=== PATIENT | female | born 1990 | race Two or more races ===

== ENCOUNTER 2016-05-22 14:34 | Emergency (ER) | payer MEDICAID ==
[2016-05-22] MEDS ORDERED: Sodium Chloride 0.9% 1,000 ML IV ONE (15:11)
--- NOTE | 2016-05-22 15:12 | EDM.PDOC ---
ED HPI GENERAL MEDICAL PROBLEM - General Stated Complaint: ABD PAIN Time Seen by Provider: 05/22/16 14:34 Source of Information: Reports: Patient, Family History Limitations: Reports: No limitations - History of Present Illness INITIAL COMMENTS - FREE TEXT/NARRATIVE: 26 years old w f came to the ed due to pain at her lower abdomen/pelvic. No trauma. Pain started acutely this am. 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 No dysuria, no vag discharge. Pt took a BC pill in [place] which is good "for live" a few months ago. Pt denies any other acute medical issues at this time. Onset: today Onset Date: 05/22/16 Onset Time: 07:00 Duration: Hour(s): Location: Reports: pelvis Quality: Reports: Dull, Throbbing Severity: mild Improves with: Reports: None Worsens with: Reports: None Associated Symptoms: Reports: nausea/vomiting Lower Abdominal Pain Score (Numeric/FACES): 6 - Related Data Allergies Allergy/AdvReac Type Severity Reaction Status Date / Time No Known Allergies Allergy Verified 05/22/16 15:43 Home Meds: Home Meds Ondansetron [Zofran ODT] 4 mg PO Q6H PRN #20 tab.dis 05/22/16 [Rx] ED ROS GENERAL - Review of Systems Review Of Systems: See Below Constitutional: Reports: decreased appetite HEENT: Reports: No symptoms Respiratory: Reports: No Symptoms Cardiovascular: Reports: No symptoms Endocrine: Reports: no symptoms GI/Abdominal: Reports: Nausea, Vomiting : Reports: pain Musculoskeletal: Reports: no symptoms Skin: Reports: no symptoms Neurological: Reports: No Symptoms Psychiatric: Reports: No symptoms Hematologic/Lymphatic: Reports: no symptoms Immunologic: Reports: no symptoms ED EXAM, GENERAL - Physical Exam Exam: See Below Exam Limited By: No limitations General Appearance: alert, WD/WN, no apparent distress, mild distress Eye Exam: bilateral eye: normal inspection Ears: normal external exam, normal canal Ear Exam: bilateral ear: auricle normal Nose: normal inspection, normal mucosa Throat/Mouth: Normal inspection, Normal lips, Normal teeth, Normal gums, Normal oropharynx, Normal voice, No airway compromise Head: atraumatic, normocephalic Neck: normal inspection, supple, non-tender, full range of motion Respiratory/Chest: no respiratory distress, lungs clear, normal breath sounds, no accessory muscle use, chest non-tender Cardiovascular: normal peripheral pulses, regular rate, rhythm, no edema, no gallop, no JVD, no murmur, no rub Peripheral Pulses: 2+: femoral (L), femoral (R) GI/Abdominal: normal bowel sounds, soft, no organomegaly, no distention, no abnormal bruit, no mass, tender (l a r groin) (Female) Exam: Deferred, Other (refused exam) Rectal (Female) Exam: Deferred Back Exam: normal inspection, full range of motion, NT Extremities: normal inspection, normal range of motion, non-tender, normal capillary refill, no pedal edema Neurological: alert, oriented, CN II-XII intact, normal cognition, normal gait, normal reflexes, no motor/sensory deficits Psychiatric: normal affect, normal mood Skin Exam: Warm, Dry, Intact, Normal color, No rash Lymphatic: no adenopathy Course - Vital Signs Text/Narrative:: 26 years old w f came to the ed due to pain at her lower abdomen/pelvic. No trauma. Pain started acutely this am. 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 No dysuria, no vag discharge. Pt took a BC pill in [place] which is good "for live" a few months ago. Pt denies any other acute medical issues at this time. PE: pelvic pain, refused pelvic exam because her boyfriend had to go to work Labs:WBC was 14 UA was ne UDS was pos for marijuana, preg test neg Imaging: not indicated Impression: Pelvic pain with elevated WBC Tx: Toradol Reexam: Pain improved Plan: D/C with instructions. Last Recorded V/S: Last Vital Signs Temp 37.4 C 05/22/16 15:36 Pulse 100 05/22/16 15:36 Resp 18 05/22/16 17:02 BP 133/77 05/22/16 17:02 Pulse Ox 100 05/22/16 17:02 - Orders/Labs/Meds Orders: Active Orders 24 hr Category Date Time Status Pelvic Exam, Set Up [RC] ASDIRECTED Care 05/22/16 16:47 Active Sodium Chloride 0.9% [Saline Flush] Med 05/22/16 15:31 Active 10 ml FLUSH ASDIRECTED PRN Peripheral IV Insertion Adult [OM.PC] Routine Oth 05/22/16 15:31 Ordered Medication Orders Sodium Chloride (Saline Flush) 10 ml FLUSH ASDIRECTED PRN PRN Reason: Keep Vein Open Last Admin: 05/22/16 15:50 Dose: 10 ml Labs: Laboratory Tests 05/22/16 05/22/16 05/22/16 Range/Units 15:20 15:20 16:20 WBC 14.0 H (4.5-12.0) X10-3/uL RBC 4.36 (3.23-5.20) x10(6)uL Hgb 12.0 (11.5-15.5) g/dL Hct 35.9 (30.0-51.3) % MCV 82.4 (80-96) fL MCH 27.5 L (27.7-33.6) pg MCHC 33.3 (32.2-35.4) g/dL RDW 15.5 (11.5-15.5) % Plt Count 199 (125-369) X10(3)uL MPV 9.4 (7.4-10.4) fL Add Manual Diff Yes Neutrophils % (Manual) 84 H (46-82) % Band Neutrophils % 3 (0-6) % Lymphocytes % (Manual) 7 L (13-37) % Monocytes % (Manual) 6 (4-12) % Anisocytosis Moderate H Sodium 137 (135-145) mmol/L Potassium 3.6 (3.5-5.3) mmol/L Chloride 105 (100-110) mmol/L Carbon Dioxide 25 (23-29) mmol/L BUN 10 (5-20) mg/dL Creatinine 0.7 (0.6-1.3) mg/dL Est Cr Clr Drug Dosing TNP Estimated GFR (MDRD) > 60 (>60) BUN/Creatinine Ratio 14.3 (9-20) Glucose 108 (80-116) mg/dL Calcium 9.5 (8.6-10.2) mg/dL Urine Color (YELLOW) Urine Appearance (CLEAR) Urine pH (5.0-6.5) Ur Specific [place] (1.010-1.025) Urine Protein (NEGATIVE) mg/dL Urine Glucose (UA) (NEGATIVE) mg/dL Urine Ketones (NEGATIVE) mg/dL Urine Occult Blood (NEGATIVE) Urine Nitrite (NEGATIVE) Urine Bilirubin (NEGATIVE) Urine Urobilinogen (NEGATIVE) mg/dL Ur Leukocyte Esterase (NEGATIVE) Urine RBC (0) Urine WBC (0) Ur Squamous Epith Cells (NS,R,O) Urine Bacteria (NS) Urine Mucus (NS) Urine HCG, Qual (NEGATIVE) Urine Opiates Screen Negative (NEGATIVE) Ur Oxycodone Screen Negative (NEGATIVE) Ur Propoxyphene Screen Negative (NEGATIVE) Ur Barbituates Screen Negative (NEGATIVE) Ur Tricyclics Screen Negative (NEGATIVE) Ur Phencyclidine Scrn Negative (NEGATIVE) Ur Amphetamine Screen Negative (NEGATIVE) Urine MDMA Screen Negative (NEGATIVE) U Benzodiazepines Scrn Negative (NEGATIVE) U Cocaine Metab Screen Negative (NEGATIVE) U Marijuana (THC) Screen Positive H (NEGATIVE) 05/22/16 05/22/16 Range/Units 16:20 16:20 WBC (4.5-12.0) X10-3/uL RBC (3.23-5.20) x10(6)uL Hgb (11.5-15.5) g/dL Hct (30.0-51.3) % MCV (80-96) fL MCH (27.7-33.6) pg MCHC (32.2-35.4) g/dL RDW (11.5-15.5) % Plt Count (125-369) X10(3)uL MPV (7.4-10.4) fL Add Manual Diff Neutrophils % (Manual) (46-82) % Band Neutrophils % (0-6) % Lymphocytes % (Manual) (13-37) % Monocytes % (Manual) (4-12) % Anisocytosis Sodium (135-145) mmol/L Potassium (3.5-5.3) mmol/L Chloride (100-110) mmol/L Carbon Dioxide (23-29) mmol/L BUN (5-20) mg/dL Creatinine (0.6-1.3) mg/dL Est Cr Clr Drug Dosing Estimated GFR (MDRD) (>60) BUN/Creatinine Ratio (9-20) Glucose (80-116) mg/dL Calcium (8.6-10.2) mg/dL Urine Color Yellow (YELLOW) Urine Appearance Clear (CLEAR) Urine pH 8.0 H (5.0-6.5) Ur Specific [place] 1.015 (1.010-1.025) Urine Protein Negative (NEGATIVE) mg/dL Urine Glucose (UA) Normal (NEGATIVE) mg/dL Urine Ketones 15 H (NEGATIVE) mg/dL Urine Occult Blood Negative (NEGATIVE) Urine Nitrite Negative (NEGATIVE) Urine Bilirubin Negative (NEGATIVE) Urine Urobilinogen Normal (NEGATIVE) mg/dL Ur Leukocyte Esterase Negative (NEGATIVE) Urine RBC Not seen (0) Urine WBC 0-5 (0) Ur Squamous Epith Cells Moderate H (NS,R,O) Urine Bacteria Few H (NS) Urine Mucus Few H (NS) Urine HCG, Qual Negative (NEGATIVE) Urine Opiates Screen (NEGATIVE) Ur Oxycodone Screen (NEGATIVE) Ur Propoxyphene Screen (NEGATIVE) Ur Barbituates Screen (NEGATIVE) Ur Tricyclics Screen (NEGATIVE) Ur Phencyclidine Scrn (NEGATIVE) Ur Amphetamine Screen (NEGATIVE) Urine MDMA Screen (NEGATIVE) U Benzodiazepines Scrn (NEGATIVE) U Cocaine Metab Screen (NEGATIVE) U Marijuana (THC) Screen (NEGATIVE) Meds: Medications Generic Name Dose Route Start Last Admin Trade Name Freq PRN Reason Stop Dose Admin Sodium Chloride 10 ml 05/22/16 15:31 05/22/16 15:50 Saline Flush FLUSH 10 ml ASDIRECTED PRN Administration Keep Vein Open Discontinued Medications Generic Name Dose Route Start Last Admin Trade Name Freq PRN Reason Stop Dose Admin Sodium Chloride 1,000 mls @ 999 mls/hr 05/22/16 15:11 05/22/16 15:51 Normal Saline IV 05/22/16 16:11 999 mls/hr .BOLUS ONE Administration Ketorolac Tromethamine 30 mg 05/22/16 16:53 05/22/16 16:58 Toradol IVPUSH 05/22/16 16:54 30 mg ONETIME ONE Administration Departure - Departure Time of Disposition: 16:51 Disposition: Home, Self-Care 01 Condition: good Clinical Impression: Pelvic pain Elevated WBC count Qualifiers: Leukocytosis type: unspecified Qualified Code(s): D72.829 - Elevated white blood cell count, unspecified Prescriptions: Ondansetron [Zofran ODT] 4 mg PO Q6H PRN #20 tab.dis PRN Reason: Nausea Instructions: Pelvic Pain, Female, [id number], Leukocytosis Forms: ED Department Discharge Additional Instructions: Please take zofran for nausea, please follow up with obgyn a.s.a.p, take tylenol and motrin with food for pain. Please come back to the ed if your symptoms get worse acutely. [facility]- [phone] [facility] [phone] - My Orders Last 24 Hours: My Active Orders 05/22/16 15:31 Sodium Chloride 0.9% [Saline Flush] 10 ml FLUSH ASDIRECTED PRN Peripheral IV Insertion Adult [OM.PC] Routine 05/22/16 16:47 Pelvic Exam, Set Up [RC] ASDIRECTED - Assessment/Plan Last 24 Hours: My Active Orders 05/22/16 15:31 Sodium Chloride 0.9% [Saline Flush] 10 ml FLUSH ASDIRECTED PRN Peripheral IV Insertion Adult [OM.PC] Routine 05/22/16 16:47 Pelvic Exam, Set Up [RC] ASDIRECTED
[2016-05-22] MEDS ORDERED: Sodium Chloride 0.9% 10 ML Syringe FLUSH PRN (15:31)
[2016-05-22] MEDS ORDERED: Ketorolac 30 MG/ML SDV IVPUSH ONE (16:53)
[2016-05-22 17:03] VITALS: BP 133/77
== END 2016-05-22 17:15 | disposition home or self-care (01) ==
LOC: FB.ED 14:34
DX: R10.2 Pelvic and perineal pain (principal); D72.829 Elevated white blood cell count, unspecified
CPT/HCPCS: 36415; 80048; 80305; 81001; 81025; 85025; 96361; 96374; 99283; J1885; J7040; J7050

== ENCOUNTER 2017-11-20 20:35 | Emergency (ER) | payer MEDICAID ==
[2017-11-20] MEDS ORDERED: Sodium Chloride 0.9% 1,000 ML IV ONE (22:28)
--- NOTE | 2017-11-20 22:34 | EDM.PDOC ---
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 Vomiting causes soreness of throat. She was pain neck and throat 07/28. Sinuses are negative. 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: - Infectious Disease History Infectious Disease History: Reports: Chicken Pox - Past Surgical History GI Surgical History: Reports: Appendectomy Social & Family History - Caffeine Use Caffeine Use: Reports: Tea ED ROS GENERAL - Review of Systems Review Of Systems: See Below Constitutional: Reports: Fever, Malaise, Weakness, Weight Loss HEENT: Reports: Throat Pain Respiratory: Reports: Cough Cardiovascular: Reports: No Symptoms Endocrine: Reports: No Symptoms GI/Abdominal: Reports: Abdominal Pain, Vomiting, Other (She does not think the vomiting from a food source.) : Reports: No Symptoms Musculoskeletal: Reports: Muscle Pain Skin: Reports: No Symptoms Neurological: Reports: Headache (She feels the headache is from dehydration) Psychiatric: Reports: No Symptoms Hematologic/Lymphatic: Reports: No Symptoms Immunologic: Reports: No Symptoms ED EXAM, GENERAL - Physical Exam Exam: See Below Free Text/Narrative:: Pleasant woman in moderate distress complains of sore throat Exam Limited By: No Limitations General Appearance: Alert, WD/WN, Moderate Distress Eye Exam: Bilateral Eye: Normal Inspection Ears: Normal External Exam, Normal Canal, Hearing Grossly Normal, Normal TMs Ear Exam: Bilateral Ear: Auricle Normal, Canal Normal, TM normal Nose: Normal Inspection Throat/Mouth: Normal Inspection, Other (Oral mucosa is moderately dry) Head: Atraumatic, Normocephalic Neck: Normal Inspection, Supple, Non-Tender, Full Range of Motion Respiratory/Chest: No Respiratory Distress, Lungs Clear, Normal Breath Sounds, No Accessory Muscle Use, Chest Non-Tender Peripheral Pulses: 1+: Radial (L), Radial (R) GI/Abdominal: Normal Bowel Sounds, Tender, Other (Mild guarding no masses, no distention bowel sounds are increased) (Female) Exam: Deferred Rectal (Female) Exam: Deferred Back Exam: Normal Inspection, Full Range of Motion, Decreased Range of Motion Extremities: Normal Inspection, Normal Range of Motion Neurological: Alert, Oriented, CN II-XII Intact, Normal Cognition, Normal Gait, Normal Reflexes, No Motor/Sensory Deficits Psychiatric: Normal Affect, Normal Mood Skin Exam: Warm, Intact Lymphatic: Adenopathy Course - Vital Signs Last Recorded V/S: Last Vital Signs Temp 36.9 C 11/20/17 23:25 Pulse 70 11/20/17 23:25 Resp 16 11/20/17 23:25 BP 114/76 11/20/17 23:25 Pulse Ox 100 11/20/17 23:25 - Orders/Labs/Meds Labs: Laboratory Tests 11/21/17 11/21/17 Range/Units 01:35 01:35 WBC 4.9 (4.5-12.0) X10-3/uL RBC 4.06 (3.23-5.20) x10(6)uL Hgb 10.8 L (11.5-15.5) g/dL Hct 33.0 (30.0-51.3) % MCV 81.2 (80-96) fL MCH 26.5 L (27.7-33.6) pg MCHC 32.7 (32.2-35.4) g/dL RDW 17.4 H (11.5-15.5) % Plt Count 156 (125-369) X10(3)uL MPV 11.3 H (7.4-10.4) fL Neut % (Auto) 70.2 (46-82) % Lymph % (Auto) 19.3 (13-37) % [place] % (Auto) 7.8 (4-12) % Eos % (Auto) 2 (1.0-5.0) % Baso % (Auto) 1 (0-2) % Neut # (Auto) 3.4 (1.6-8.3) # Lymph # (Auto) 1.0 (0.6-5.0) # [place] # (Auto) 0.4 (0.0-1.3) # Eos # (Auto) 0.1 (0.0-0.8) # Baso # (Auto) 0.0 (0.0-0.2) # Sodium 141 (135-145) mmol/L Potassium 3.5 (3.5-5.3) mmol/L Chloride 109 (100-110) mmol/L Carbon Dioxide 23 (21-32) mmol/L BUN 6 L (7-18) mg/dL Creatinine 0.6 (0.55-1.02) mg/dL Est Cr Clr Drug Dosing TNP Estimated GFR (MDRD) > 60 (>60) BUN/Creatinine Ratio 10.0 (9-20) Glucose 115 (80-116) mg/dL Calcium 7.9 L (8.6-10.2) mg/dL Total Bilirubin 0.2 (0.1-1.3) mg/dL AST 10 (5-25) IU/L ALT 15 (12-36) U/L Alkaline Phosphatase 61 (56-112) IU/L Total Protein 6.5 (6.0-8.0) g/dL Albumin 3.1 L (3.5-5.2) g/dL Globulin 3.4 g/dL Albumin/Globulin Ratio 0.9 Meds: Medications Discontinued Medications Generic Name Dose Route Start Last Admin Trade Name Freq PRN Reason Stop Dose Admin Sodium Chloride 1,000 mls @ 999 mls/hr 11/20/17 22:28 11/20/17 22:46 Normal Saline IV 11/20/17 23:28 999 mls/hr .BOLUS ONE Administration Lactated Ringer's 1,000 mls @ 999 mls/hr 11/21/17 00:28 11/21/17 13:18 Ringers, Lactated IV 11/21/17 01:28 Not Given BOLUS ONE Sodium Chloride 1,000 mls @ 999 mls/hr 11/21/17 00:30 11/21/17 00:30 Normal Saline IV 10/04/18 01:30 999 mls/hr .BOLUS ONE Administration Ketorolac Tromethamine 30 mg 11/20/17 23:26 11/20/17 23:48 Toradol IVPUSH 11/20/17 23:27 30 mg ONETIME ONE Administration Ondansetron HCl 4 mg 11/21/17 00:55 11/21/17 00:58 Zofran Odt PO 11/21/17 00:56 4 mg ONETIME ONE Administration Departure - Departure Time of Disposition: 22:10 (Recent illness but after he had the IV infusion. the pain diminished the guarding diminished, he was critical.) Disposition: Home, Self-Care 01 Clinical Impression: Dehydration, Nonspecific abdominal pain Vomiting Qualifiers: Vomiting type: unspecified Vomiting Intractability: non-intractable Nausea presence: with nausea Qualified Code(s): R11.2 - Nausea with vomiting, unspecified - Discharge Information *PRESCRIPTION DRUG MONITORING PROGRAM REVIEWED*: Not Applicable *COPY OF PRESCRIPTION DRUG MONITORING REPORT IN PATIENT JAYCEE: Not Applicable Prescriptions: Ondansetron [Zofran ODT] 4 mg PO Q6H PRN #8 tab.dis PRN Reason: Vomiting Instructions: Dehydration, Adult, [id number] Referrals: PCP,None [Primary Care Provider] - Forms: ED Department Discharge Additional Instructions: dehydration gradually increase your diet as tolerated see your MD as needed in the next 5-7 day
[2017-11-20] MEDS ORDERED: Ketorolac 30 MG/ML SDV IVPUSH ONE (23:26)
[2017-11-21 00:11] VITALS: BP 114/76
[2017-11-21] MEDS ORDERED: Lactated Ringers 1,000 ML IV ONE (00:28)
[2017-11-21] MEDS ORDERED: Sodium Chloride 0.9% 1,000 ML IV ONE (00:30)
[2017-11-21] MEDS ORDERED: Ondansetron 4 MG Tab.DIS PO ONE (00:55)
== END 2017-11-21 01:45 | disposition home or self-care (01) ==
LOC: FB.ED 20:35
DX: E86.0 Dehydration (principal); R10.9 Unspecified abdominal pain; R11.2 Nausea with vomiting, unspecified
CPT/HCPCS: 36415; 80053; 85025; 87081; 87804; 87880; 96361; 96374; 99283; A9270; J1885; J7030

== ENCOUNTER 2018-09-15 21:26 | Emergency (ER) | payer MEDICAID, OTHER ==
[2018-09-15] MEDS ORDERED: Ondansetron 4 MG Tab.DIS PO ONE (21:27)
[2018-09-15] MEDS ORDERED: Sodium Chloride 0.9% 10 ML Syringe FLUSH PRN (21:54)
[2018-09-15] MEDS ORDERED: Ondansetron 4 MG/2 ML SDV IVPUSH ONE (21:54)
--- NOTE | 2018-09-15 21:57 | EDM.PDOC ---
ED HPI GENERAL MEDICAL PROBLEM - General Stated Complaint: DIZZY AND NEASEA Time Seen by Provider: 09/15/18 21:55 Source of Information: Reports: Patient History Limitations: Reports: No Limitations - History of Present Illness INITIAL COMMENTS - FREE TEXT/NARRATIVE: Luisa complains of nausea,vomiting and epigastric cramps x 2 days. Previously healthy except for anemia. Was seen not long ago with similar symptoms. 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 ED EXAM, GI/ABD - Physical Exam Exam: See Below Exam Limited By: No Limitations General Appearance: Alert, Cachetic, Other (Pale) Eyes: Bilateral: Normal Appearance, EOMI Head: Atraumatic Neck: Normal Inspection Respiratory/Chest: No Respiratory Distress, No Accessory Muscle Use GI/Abdominal Exam: Normal Bowel Sounds, Soft, Non-Tender, No Distention, No Mass Back Exam: Normal Inspection Psychiatric: Normal Affect Skin Exam: Warm, Dry Course - Orders/Labs/Meds Orders: Active Orders 24 hr Category Date Time Status HCG QUALITATIVE,URINE [URCHEM] Stat Lab 09/15/18 21:55 Ordered UA W/MICROSCOPIC [URIN] Stat Lab 09/15/18 21:55 Ordered Sodium Chloride 0.9% [Normal Saline] 1,000 ml Med 09/15/18 22:00 Active IV ASDIRECTED Sodium Chloride 0.9% [Saline Flush] Med 09/15/18 21:54 Active 10 ml FLUSH ASDIRECTED PRN Peripheral IV Insertion Adult [OM.PC] Routine Oth 09/15/18 21:54 Ordered Medication Orders Sodium Chloride (Normal Saline) 1,000 mls @ 999 mls/hr IV ASDIRECTED YULY Last Admin: 09/15/18 22:27 Dose: 999 mls/hr Sodium Chloride (Saline Flush) 10 ml FLUSH ASDIRECTED PRN PRN Reason: Keep Vein Open Labs: Laboratory Tests 09/15/18 09/15/18 Range/Units 22:00 22:00 WBC 9.6 (4.5-12.0) X10-3/uL RBC 4.24 (3.23-5.20) x10(6)uL Hgb 12.2 (11.5-15.5) g/dL Hct 35.5 (30.0-51.3) % MCV 83.7 (80-96) fL MCH 28.7 (27.7-33.6) pg MCHC 34.3 (32.2-35.4) g/dL RDW 14.7 (11.5-15.5) % Plt Count 275 (125-369) X10(3)uL MPV 10.0 (7.4-10.4) fL Neut % (Auto) 78.9 (46-82) % Lymph % (Auto) 14.0 (13-37) % [place] % (Auto) 5.2 (4-12) % Eos % (Auto) 2 (1.0-5.0) % Baso % (Auto) 0 (0-2) % Neut # (Auto) 7.7 (1.6-8.3) # Lymph # (Auto) 1.3 (0.6-5.0) # [place] # (Auto) 0.5 (0.0-1.3) # Eos # (Auto) 0.1 (0.0-0.8) # Baso # (Auto) 0.0 (0.0-0.2) # Sodium 140 (135-145) mmol/L Potassium 3.7 (3.5-5.3) mmol/L Chloride 105 (100-110) mmol/L Carbon Dioxide 29 (21-32) mmol/L BUN 18 (7-18) mg/dL Creatinine 0.8 (0.55-1.02) mg/dL Est Cr Clr Drug Dosing TNP Estimated GFR (MDRD) > 60 (>60) BUN/Creatinine Ratio 22.5 H (9-20) Glucose 89 (80-116) mg/dL Calcium 9.6 (8.6-10.2) mg/dL Total Bilirubin 0.4 (0.1-1.3) mg/dL AST 19 D (5-25) IU/L ALT 26 D (12-36) U/L Alkaline Phosphatase 90 (56-112) IU/L Total Protein 7.7 (6.0-8.0) g/dL Albumin 3.9 (3.5-5.2) g/dL Globulin 3.8 g/dL Albumin/Globulin Ratio 1.0 Meds: Medications Generic Name Dose Route Start Last Admin Trade Name Freq PRN Reason Stop Dose Admin Sodium Chloride 1,000 mls @ 999 mls/hr 09/15/18 22:00 09/15/18 22:27 Normal Saline IV 999 mls/hr ASDIRECTED YULY Administration Sodium Chloride 10 ml 09/15/18 21:54 Saline Flush FLUSH ASDIRECTED PRN Keep Vein Open Discontinued Medications Generic Name Dose Route Start Last Admin Trade Name Freq PRN Reason Stop Dose Admin Ondansetron HCl 8 mg 09/15/18 21:54 09/15/18 22:27 Zofran IVPUSH 09/15/18 21:55 8 mg ONETIME ONE Administration Departure - Departure Time of Disposition: 21:57 Disposition: Home, Self-Care 01 Condition: Good Clinical Impression: Nonspecific abdominal pain - Discharge Information Instructions: Gastritis, Adult, [id number] Referrals: PCP,None [Primary Care Provider] - (See PCP PRN) Additional Instructions: Zofran 4 mg qid prn - Problem List & Annotations (1) Vomiting SNOMED Code(s): 698549628 Code(s): R11.10 - VOMITING, UNSPECIFIED Status: Acute Current Visit: No Qualifiers: Vomiting type: unspecified Vomiting Intractability: non-intractable Nausea presence: with nausea Qualified Code(s): R11.2 - Nausea with vomiting, unspecified (2) Nonspecific abdominal pain SNOMED Code(s): 100627896 Code(s): R10.9 - UNSPECIFIED ABDOMINAL PAIN Status: Acute Current Visit: Yes - My Orders Last 24 Hours: My Active Orders 09/15/18 21:54 Sodium Chloride 0.9% [Saline Flush] 10 ml FLUSH ASDIRECTED PRN Peripheral IV Insertion Adult [OM.PC] Routine 09/15/18 21:55 HCG QUALITATIVE,URINE [URCHEM] Stat UA W/MICROSCOPIC [URIN] Stat 09/15/18 22:00 Sodium Chloride 0.9% [Normal Saline] 1,000 ml IV ASDIRECTED - Assessment/Plan Last 24 Hours: My Active Orders 09/15/18 21:54 Sodium Chloride 0.9% [Saline Flush] 10 ml FLUSH ASDIRECTED PRN Peripheral IV Insertion Adult [OM.PC] Routine 09/15/18 21:55 HCG QUALITATIVE,URINE [URCHEM] Stat UA W/MICROSCOPIC [URIN] Stat 09/15/18 22:00 Sodium Chloride 0.9% [Normal Saline] 1,000 ml IV ASDIRECTED Plan: 1 L Normal saline and IV zofran. DC home on oral Zofran.Follow up PRn
[2018-09-15] MEDS ORDERED: Sodium Chloride 0.9% 1,000 ML IV SCH (22:00)
[2018-09-16 02:19] VITALS: BP 121/92; PULSE 64
== END 2018-09-15 23:45 | disposition home or self-care (01) ==
LOC: FB.ED 21:26
DX: R10.9 Unspecified abdominal pain (principal); R11.2 Nausea with vomiting, unspecified
CPT/HCPCS: 36415; 80053; 81001; 81025; 85025; 96361; 96374; 99283; J2405; J7030; A9270-GY

== ENCOUNTER 2018-12-06 14:53 | Emergency (ER) | payer MEDICAID ==
[2018-12-06] MEDS ORDERED: Ondansetron 4 MG Tab.DIS PO ONE (14:54)
--- NOTE | 2018-12-06 15:17 | EDM.PDOC ---
ED HPI GENERAL MEDICAL PROBLEM - General Stated Complaint: DEHYDRATED Time Seen by Provider: 12/06/18 15:15 Source of Information: Reports: Patient History Limitations: Reports: No Limitations - History of Present Illness INITIAL COMMENTS - FREE TEXT/NARRATIVE: 28-year-old female who reports she awoke at 5 AM with vomiting and has had protracted vomiting since then. She reports she has had vomiting 15+. She has continually tried to drink liquids/water and has continually been throwing up with it. She does admit to drinking alcohol last night she has some sharp and stabbing abdominal pain that is associated with her vomiting that she rates as an 8/10. She also has some lower back tightness that is mild. She feels weak and dizzy. No syncope but some near syncope. No fevers or chills. She's had no dysuria. She is currently on her menses. No diarrhea. There are no other associated signs or symptoms. There are no other modifying factors. 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) Upper Abdomen Pain Score (Numeric/FACES): 8 - Related Data Allergies Allergy/AdvReac Type Severity Reaction Status Date / Time No Known Allergies Allergy Verified 12/06/18 15:49 Home Meds: Home Meds NK [No Known Home Meds] 09/16/18 [History] Past Medical History Hematologic History: Reports: Anemia - Infectious Disease History Infectious Disease History: Reports: Chicken Pox - Past Surgical History GI Surgical History: Reports: Appendectomy Social & Family History - Tobacco Use Smoking Status *Q: Current Every Day Smoker - Caffeine Use Caffeine Use: Reports: Tea Caffeine Use Comment: Minimal - Alcohol Use Alcohol Use History: Yes Alcohol Use Frequency: Weekly (States was drinking alcohol last night. She states she drinks alcohol probably every other day.) - Sexual History Sexual History: Reports: Single Partner - Living Situation & Occupation Living situation: Reports: , with Spouse Social History Comment: [id number] mom ED ROS GENERAL - Review of Systems Review Of Systems: See Below Constitutional: Reports: Weakness HEENT: Reports: Other (Dry mouth) Respiratory: Reports: No Symptoms Cardiovascular: Reports: No Symptoms GI/Abdominal: Reports: Abdominal Pain (As above), Nausea, Vomiting. Denies: Diarrhea : Reports: No Symptoms (She is currently on her menses) Musculoskeletal: Reports: Back Pain (Lower back tightness) Skin: Reports: No Symptoms Neurological: Reports: Dizziness, Weakness (Generalized) Hematologic/Lymphatic: Reports: No Symptoms Immunologic: Reports: No Symptoms ED EXAM, GI/ABD - Physical Exam Exam: See Below Exam Limited By: No Limitations General Appearance: Alert, WD/WN, Moderate Distress Eyes: Bilateral: Normal Appearance, EOMI Ears: Normal External Exam, Hearing Grossly Normal Nose: Normal Inspection, Normal Mucosa, No Blood Throat/Mouth: Normal Voice, No Airway Compromise, Other (Dry mucous membranes. Dry lips.) Head: Atraumatic, Normocephalic Neck: Normal Inspection, Supple, Non-Tender, Full Range of Motion Respiratory/Chest: No Respiratory Distress, Lungs Clear, Normal Breath Sounds, No Accessory Muscle Use Cardiovascular: Normal Peripheral Pulses, Regular Rate, Rhythm, No JVD GI/Abdominal Exam: Normal Bowel Sounds, Soft, Non-Tender, No Mass Back Exam: Normal Inspection, Full Range of Motion Extremities: Normal Inspection, Normal Range of Motion, Non-Tender, No Pedal Edema, Normal Capillary Refill Neurological: Alert, Oriented, CN II-XII Intact, Normal Cognition, No Motor/ Sensory Deficits Skin Exam: Warm, Dry, Intact, Normal Color, No Rash Course - Vital Signs Last Recorded V/S: Last Vital Signs Temp 35.9 C 12/06/18 15:00 Pulse 89 12/06/18 17:53 Resp 18 12/06/18 17:53 BP 92/50 L 12/06/18 17:53 Pulse Ox 100 12/06/18 17:53 - Orders/Labs/Meds Orders: Active Orders 24 hr Category Date Time Status CULTURE URINE [RM] Stat Lab 12/06/18 16:33 Ordered Sodium Chloride 0.9% [Saline Flush] Med 12/06/18 15:28 Active 10 ml FLUSH ASDIRECTED PRN Peripheral IV Insertion Adult [OM.PC] Routine Oth 12/06/18 15:28 Ordered Medication Orders Sodium Chloride (Saline Flush) 10 ml FLUSH ASDIRECTED PRN PRN Reason: Keep Vein Open Labs: Laboratory Tests 12/06/18 12/06/18 12/06/18 Range/Units 15:40 15:40 16:33 WBC 12.4 H (4.5-12.0) X10-3/uL RBC 4.56 (3.23-5.20) x10(6)uL Hgb 12.4 (11.5-15.5) g/dL Hct 37.2 (30.0-51.3) % MCV 81.6 (80-96) fL MCH 27.1 L (27.7-33.6) pg MCHC 33.2 (32.2-35.4) g/dL RDW 15.0 (11.5-15.5) % Plt Count 342 (125-369) X10(3)uL MPV 10.0 (7.4-10.4) fL Neut % (Auto) 85.5 H (46-82) % Lymph % (Auto) 9.1 L (13-37) % [place] % (Auto) 3.2 L (4-12) % Eos % (Auto) 0 L (1.0-5.0) % Baso % (Auto) 2 (0-2) % Neut # (Auto) 10.7 H (1.6-8.3) # Lymph # (Auto) 1.1 (0.6-5.0) # [place] # (Auto) 0.4 (0.0-1.3) # Eos # (Auto) 0.0 (0.0-0.8) # Baso # (Auto) 0.2 (0.0-0.2) # Sodium 145 (135-145) mmol/L Potassium 3.7 (3.5-5.3) mmol/L Chloride 105 (100-110) mmol/L Carbon Dioxide 26 (21-32) mmol/L BUN 7 D (7-18) mg/dL Creatinine 0.7 (0.55-1.02) mg/dL Est Cr Clr Drug Dosing 106.14 mL/min Estimated GFR (MDRD) > 60 (>60) BUN/Creatinine Ratio 10.0 (9-20) Glucose 114 (80-116) mg/dL Calcium 9.7 (8.6-10.2) mg/dL Magnesium 1.9 (1.8-2.5) mg/dL Total Bilirubin 0.3 (0.1-1.3) mg/dL AST 18 (5-25) IU/L ALT 23 D (12-36) U/L Alkaline Phosphatase 106 (56-112) IU/L Total Protein 8.4 H (6.0-8.0) g/dL Albumin 4.4 (3.5-5.2) g/dL Globulin 4.0 g/dL Albumin/Globulin Ratio 1.1 Amylase 87 (25-115) U/L Urine Color Yellow (YELLOW) Urine Appearance Clear (CLEAR) Urine pH 8.0 H (5.0-6.5) Ur Specific [place] 1.015 (1.010-1.025) Urine Protein Negative (NEGATIVE) mg/dL Urine Glucose (UA) Normal (NORMAL) mg/dL Urine Ketones 15 H (NEGATIVE) mg/dL Urine Occult Blood Negative (NEGATIVE) Urine Nitrite Negative (NEGATIVE) Urine Bilirubin Negative (NEGATIVE) Urine Urobilinogen Normal (NEGATIVE) mg/dL Ur Leukocyte Esterase Negative (NEGATIVE) Urine RBC 0-5 (0-5) Urine WBC 0-5 (0-5) Ur Squamous Epith Cells Rare (NS,R,O) Urine Bacteria Moderate H (NS) Urine Mucus Moderate H (NS) Urine HCG, Qual (NEGATIVE) 12/06/18 Range/Units 16:33 WBC (4.5-12.0) X10-3/uL RBC (3.23-5.20) x10(6)uL Hgb (11.5-15.5) g/dL Hct (30.0-51.3) % MCV (80-96) fL MCH (27.7-33.6) pg MCHC (32.2-35.4) g/dL RDW (11.5-15.5) % Plt Count (125-369) X10(3)uL MPV (7.4-10.4) fL Neut % (Auto) (46-82) % Lymph % (Auto) (13-37) % [place] % (Auto) (4-12) % Eos % (Auto) (1.0-5.0) % Baso % (Auto) (0-2) % Neut # (Auto) (1.6-8.3) # Lymph # (Auto) (0.6-5.0) # [place] # (Auto) (0.0-1.3) # Eos # (Auto) (0.0-0.8) # Baso # (Auto) (0.0-0.2) # Sodium (135-145) mmol/L Potassium (3.5-5.3) mmol/L Chloride (100-110) mmol/L Carbon Dioxide (21-32) mmol/L BUN (7-18) mg/dL Creatinine (0.55-1.02) mg/dL Est Cr Clr Drug Dosing mL/min Estimated GFR (MDRD) (>60) BUN/Creatinine Ratio (9-20) Glucose (80-116) mg/dL Calcium (8.6-10.2) mg/dL Magnesium (1.8-2.5) mg/dL Total Bilirubin (0.1-1.3) mg/dL AST (5-25) IU/L ALT (12-36) U/L Alkaline Phosphatase (56-112) IU/L Total Protein (6.0-8.0) g/dL Albumin (3.5-5.2) g/dL Globulin g/dL Albumin/Globulin Ratio Amylase (25-115) U/L Urine Color (YELLOW) Urine Appearance (CLEAR) Urine pH (5.0-6.5) Ur Specific [place] (1.010-1.025) Urine Protein (NEGATIVE) mg/dL Urine Glucose (UA) (NORMAL) mg/dL Urine Ketones (NEGATIVE) mg/dL Urine Occult Blood (NEGATIVE) Urine Nitrite (NEGATIVE) Urine Bilirubin (NEGATIVE) Urine Urobilinogen (NEGATIVE) mg/dL Ur Leukocyte Esterase (NEGATIVE) Urine RBC (0-5) Urine WBC (0-5) Ur Squamous Epith Cells (NS,R,O) Urine Bacteria (NS) Urine Mucus (NS) Urine HCG, Qual Negative (NEGATIVE) Meds: Medications Generic Name Dose Route Start Last Admin Trade Name Freq PRN Reason Stop Dose Admin Sodium Chloride 10 ml 12/06/18 15:28 Saline Flush FLUSH ASDIRECTED PRN Keep Vein Open Discontinued Medications Generic Name Dose Route Start Last Admin Trade Name Freq PRN Reason Stop Dose Admin Promethazine HCl 25 mg/ Sodium 51 mls @ 200 mls/hr 12/06/18 15:31 12/06/18 15 :43 Chloride IV 12/06/18 15:46 200 mls/hr ONETIME ONE Administration Sodium Chloride 1,000 mls @ 999 mls/hr 12/06/18 15:30 12/06/18 17:05 Normal Saline IV 999 mls/hr .BOLUS YULY Administration - Re-Assessments/Exams Free Text/Narrative Re-Assessment/Exam: 12/06/18 17:15: The patient at this had a little over 1 L of her IV fluids and the Phenergan. Her blood tests are reassuring. She feels much improved. We will continue to give her the remaining IV fluids and plan on discharge if she can use as she has now. 12/06/18 18:12: Patient has received both liters of IV fluids. Her nausea has gone. She has had no further emesis. She has no abdominal pain. She feels markedly improved. She has no more dizziness or weakness feelings. Her repeat blood pressure is 102/81 and her pulse is in the 70s. The plan will be to discharge the patient home. She is to continue to orally rehydrate. I have also given her a take-home pack of Zofran for any further nausea that she may have. I have also cautioned her to avoid any alcohol use and strongly low at her alcohol use in the future as I feel that overuse of alcohol may have precipitated her vomiting and dehydration. Departure - Departure Time of Disposition: 18:15 Disposition: Home, Self-Care 01 Condition: Good (Improved) Clinical Impression: Vomiting, Dehydration - Discharge Information Instructions: Dehydration, Adult, [id number], Nausea and Vomiting, Adult, [id number] Referrals: PCP,None [Primary Care Provider] - Additional Instructions: Your blood tests were reassuringly normal. Your urine test was normal. Her test was negative. I feel that your overuse of alcohol the night before may have caused her symptoms today. I suggest that you avoid any ocular use near future and that you strongly consider abstaining from alcohol in the future. Rest. Drink small amounts of fluids frequently. Medication as prescribed for nausea (Zofran 4 mg ODT). Follow-up with your primary doctor as needed. Back to the emergency department for unrelenting vomiting, seeing abdominal pain, fever or any other concerning sign or symptom. - My Orders Last 24 Hours: My Active Orders 12/06/18 15:28 Sodium Chloride 0.9% [Saline Flush] 10 ml FLUSH ASDIRECTED PRN Peripheral IV Insertion Adult [OM.PC] Routine 12/06/18 16:33 CULTURE URINE [RM] Stat - Assessment/Plan Last 24 Hours: My Active Orders 12/06/18 15:28 Sodium Chloride 0.9% [Saline Flush] 10 ml FLUSH ASDIRECTED PRN Peripheral IV Insertion Adult [OM.PC] Routine 12/06/18 16:33 CULTURE URINE [RM] Stat
[2018-12-06] MEDS ORDERED: Sodium Chloride 0.9% 10 ML Syringe FLUSH PRN (15:28)
[2018-12-06] MEDS ORDERED: Promethazine 25 MG in Sodium Chloride 0.9% 50 ML IV ONE (15:31)
[2018-12-06] MEDS: Sodium Chloride 0.9% 1,000 ML IV SCH ×2 (15:42→17:05)
[2018-12-06 18:16] VITALS: BP 102/81; PULSE 90
== END 2018-12-06 18:35 | disposition home or self-care (01) ==
LOC: FB.ED 14:53
DX: E86.0 Dehydration (principal); R11.2 Nausea with vomiting, unspecified; F17.200 Nicotine dependence, unspecified, uncomplicated
CPT/HCPCS: 36415; 80053; 81001; 81025; 82150; 83735; 85025; 87086; 96361; 96365; 99284; J2550; J7030; J7050

== ENCOUNTER 2019-08-28 14:57 | Emergency (ER) | payer SELFPAY ==
[2019-08-28] MEDS ORDERED: Sodium Chloride 0.9% 1,000 ML IV ONE ×2 (15:43)
[2019-08-28] MEDS ORDERED: Ketorolac 30 MG/ML SDV IVPUSH ONE (15:44)
[2019-08-28] MEDS ORDERED: Alum Hydroxide/Mag Hydroxide 30 ML, Lidocaine 2% 15 ML PO ONE ×2 (15:44)
[2019-08-28] MEDS ORDERED: Ondansetron 4 MG/2 ML SDV IVPUSH ONE (15:44)
--- NOTE | 2019-08-28 15:52 | EDM.PDOC ---
ED HPI GENERAL MEDICAL PROBLEM - General Chief Complaint: Gastrointestinal Problem Stated Complaint: N/V Time Seen by Provider: 08/28/19 15:25 Source of Information: Reports: Patient History Limitations: Reports: No Limitations - History of Present Illness INITIAL COMMENTS - FREE TEXT/NARRATIVE: c/o N/V pt was home yesterday, felt okay, went to cousin and had 3 drinks, cousin and sig other were there, not ill slept thru night, woke at 8a with n/v, no f/c/d, no diarrhea last smoked THC 1w ago has had GI sxs after alc in past, "when I drink too much" 2 prior abd surg: appy and esure contraception (loops in tubes) lives with and 3 children not work outside house family not ill pain now in epigastrium and some in low back after emesis, slight BAR on menses only partner is no freq, no dysuria, on vag d/c except menses - Related Data Allergies Allergy/AdvReac Type Severity Reaction Status Date / Time No Known Allergies Allergy Verified 12/06/18 15:49 Home Meds: Home Meds Metoclopramide HCl 10 mg PO Q6H PRN #15 tablet 08/28/19 [Rx] 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: Hematologic History: Reports: Anemia - Infectious Disease History Infectious Disease History: Reports: Chicken Pox - Past Surgical History GI Surgical History: Reports: Appendectomy Social & Family History - Family History Family Medical History: Noncontributory - Caffeine Use Caffeine Use: Reports: Tea Other Caffeine Use: daily Caffeine Use Comment: Minimal - Sexual History Sexual History: Reports: Single Partner - Living Situation & Occupation Living situation: Reports: , with Spouse ED ROS GENERAL - Review of Systems Review Of Systems: See Below Constitutional: Reports: No Symptoms HEENT: Reports: No Symptoms Respiratory: Reports: No Symptoms Cardiovascular: Reports: No Symptoms Endocrine: Reports: No Symptoms GI/Abdominal: Reports: Abdominal Pain, Nausea, Vomiting. Denies: Diarrhea : Reports: No Symptoms Musculoskeletal: Reports: No Symptoms, Back Pain Skin: Reports: No Symptoms Neurological: Reports: No Symptoms Psychiatric: Reports: No Symptoms Hematologic/Lymphatic: Reports: No Symptoms Immunologic: Reports: No Symptoms ED EXAM, GENERAL - Physical Exam Exam: See Below Exam Limited By: No Limitations General Appearance: Alert, WD/WN, Mild Distress Ears: Normal External Exam, Hearing Grossly Normal Nose: Normal Inspection, Normal Mucosa, No Blood Throat/Mouth: Normal Inspection, Normal Lips, Normal Teeth, Normal Gums, Normal Oropharynx, Normal Voice, No Airway Compromise Head: Atraumatic, Normocephalic Neck: Normal Inspection, Supple, Non-Tender, Full Range of Motion. No: Lymphadenopathy (R), Lymphadenopathy (L) Respiratory/Chest: No Respiratory Distress, Lungs Clear, Normal Breath Sounds, No Accessory Muscle Use, Chest Non-Tender Cardiovascular: Normal Peripheral Pulses, Regular Rate, Rhythm, No Edema, No Murmur GI/Abdominal: Soft, Other (very soft, mild tender in epigastirum, NT to deep palp elsewhere, no CVAT, BS present, dec'd, no HSM) Back Exam: Normal Inspection, Full Range of Motion. No: CVA Tenderness (R), CVA Tenderness (L) Extremities: Normal Inspection, Normal Range of Motion, Non-Tender, No Pedal Edema, Other (mild dec'd turgor) Neurological: Alert, Oriented, CN II-XII Intact, Normal Cognition, No Motor/Sensory Deficits Psychiatric: Anxious Skin Exam: Warm, Dry, Intact, Normal Color, No Rash Lymphatic: No Adenopathy Course - Vital Signs Last Recorded V/S: Last Vital Signs Temp 36.8 C 08/28/19 14:57 Pulse 120 H 08/28/19 14:57 Resp 18 08/28/19 14:57 BP 129/85 08/28/19 14:57 Pulse Ox 100 08/28/19 14:57 - Orders/Labs/Meds Orders: Active Orders 24 hr Category Date Time Status Sodium Chloride 0.9% [Saline Flush] Med 08/28/19 15:53 Active 10 ml FLUSH ASDIRECTED PRN diphenhydrAMINE [Benadryl] Med 08/28/19 18:07 Once 25 mg IVPUSH ONETIME ONE Medication Orders Sodium Chloride (Saline Flush) 10 ml FLUSH ASDIRECTED PRN PRN Reason: Keep Vein Open Last Admin: 08/28/19 15:53 Dose: 10 ml Documented by: AALIYAH Labs: Laboratory Tests 08/28/19 08/28/19 08/28/19 Range/Units 15:52 15:52 15:52 WBC 13.7 H (4.5-12.0) X10-3/uL RBC 4.77 (3.23-5.20) x10(6)uL Hgb 12.0 (11.5-15.5) g/dL Hct 37.5 (30.0-51.3) % MCV 78.7 L (80-96) fL MCH 25.1 L (27.7-33.6) pg MCHC 31.9 L (32.2-35.4) g/dL RDW 16.3 H (11.5-15.5) % Plt Count 362 (125-369) X10(3)uL MPV 9.3 (7.4-10.4) fL Add Manual Diff Yes Neutrophils % (Manual) 92 H (46-82) % Lymphocytes % (Manual) 6 L (13-37) % Monocytes % (Manual) 2 L (4-12) % Anisocytosis Few Sodium 143 (135-145) mmol/L Potassium 4.0 (3.5-5.3) mmol/L Chloride 104 (100-110) mmol/L Carbon Dioxide 23 (21-32) mmol/L BUN 7 (7-18) mg/dL Creatinine 1.0 (0.55-1.02) mg/dL Est Cr Clr Drug Dosing TNP Estimated GFR (MDRD) > 60 (>60) BUN/Creatinine Ratio 7.0 L (9-20) Glucose 123 H (80-116) mg/dL Calcium 10.0 (8.6-10.2) mg/dL Total Bilirubin 0.4 (0.1-1.3) mg/dL AST 25 D (5-25) IU/L ALT 27 D (12-36) U/L Alkaline Phosphatase 99 (56-112) IU/L C-Reactive Protein < 0.2 L (0.5-0.9) mg/dL Total Protein 8.6 H (6.0-8.0) g/dL Albumin 4.5 (3.5-5.2) g/dL Globulin 4.1 g/dL Albumin/Globulin Ratio 1.1 Lipase 63 L (73-393) U/L Urine Color (YELLOW) Urine Appearance (CLEAR) Urine pH (5.0-6.5) Ur Specific [place] (1.010-1.025) Urine Protein (NEGATIVE) mg/dL Urine Glucose (UA) (NORMAL) mg/dL Urine Ketones (NEGATIVE) mg/dL Urine Occult Blood (NEGATIVE) Urine Nitrite (NEGATIVE) Urine Bilirubin (NEGATIVE) Urine Urobilinogen (NEGATIVE) mg/dL Ur Leukocyte Esterase (NEGATIVE) Urine RBC (0-5) Urine WBC (0-5) Ur Squamous Epith Cells (NS,R,O) Urine Bacteria (NS) Urine Mucus (NS) 08/28/19 Range/Units 16:55 WBC (4.5-12.0) X10-3/uL RBC (3.23-5.20) x10(6)uL Hgb (11.5-15.5) g/dL Hct (30.0-51.3) % MCV (80-96) fL MCH (27.7-33.6) pg MCHC (32.2-35.4) g/dL RDW (11.5-15.5) % Plt Count (125-369) X10(3)uL MPV (7.4-10.4) fL Add Manual Diff Neutrophils % (Manual) (46-82) % Lymphocytes % (Manual) (13-37) % Monocytes % (Manual) (4-12) % Anisocytosis Sodium (135-145) mmol/L Potassium (3.5-5.3) mmol/L Chloride (100-110) mmol/L Carbon Dioxide (21-32) mmol/L BUN (7-18) mg/dL Creatinine (0.55-1.02) mg/dL Est Cr Clr Drug Dosing Estimated GFR (MDRD) (>60) BUN/Creatinine Ratio (9-20) Glucose (80-116) mg/dL Calcium (8.6-10.2) mg/dL Total Bilirubin (0.1-1.3) mg/dL AST (5-25) IU/L ALT (12-36) U/L Alkaline Phosphatase (56-112) IU/L C-Reactive Protein (0.5-0.9) mg/dL Total Protein (6.0-8.0) g/dL Albumin (3.5-5.2) g/dL Globulin g/dL Albumin/Globulin Ratio Lipase (73-393) U/L Urine Color Yellow (YELLOW) Urine Appearance Clear (CLEAR) Urine pH 6.5 (5.0-6.5) Ur Specific [place] 1.015 (1.010-1.025) Urine Protein Negative (NEGATIVE) mg/dL Urine Glucose (UA) Normal (NORMAL) mg/dL Urine Ketones 50 H (NEGATIVE) mg/dL Urine Occult Blood Negative (NEGATIVE) Urine Nitrite Negative (NEGATIVE) Urine Bilirubin Negative (NEGATIVE) Urine Urobilinogen Normal (NEGATIVE) mg/dL Ur Leukocyte Esterase Negative (NEGATIVE) Urine RBC Not seen (0-5) Urine WBC 0-5 (0-5) Ur Squamous Epith Cells Few H (NS,R,O) Urine Bacteria Few H (NS) Urine Mucus Few H (NS) Meds: Medications Generic Name Dose Route Start Last Admin Trade Name Freq PRN Reason Stop Dose Admin Sodium Chloride 10 ml 08/28/19 15:53 08/28/19 15:53 Saline Flush FLUSH 10 ml ASDIRECTED PRN Administration Keep Vein Open Discontinued Medications Generic Name Dose Route Start Last Admin Trade Name Freq PRN Reason Stop Dose Admin Acetaminophen 1,000 mg 08/28/19 16:57 08/28/19 17:18 Tylenol Extra Strength PO 08/28/19 16:58 1,000 mg ONETIME ONE Administration Al Hydroxide/Mg Hydroxide 30 0 ml 08/28/19 15:44 08/28/19 15:52 ml/ Lidocaine HCl 15 ml PO 08/28/19 15:45 30 ml ONETIME ONE Administration Sodium Chloride 1,000 mls @ 999 mls/hr 08/28/19 15:43 08/28/19 15:52 Normal Saline IV 08/28/19 16:43 999 mls/hr .BOLUS ONE Administration Sodium Chloride 1,000 mls @ 999 mls/hr 08/28/19 15:43 08/28/19 17:00 Normal Saline IV 08/28/19 16:43 999 mls/hr .BOLUS ONE Administration Ketorolac Tromethamine 30 mg 08/28/19 15:44 08/28/19 15:52 Toradol IVPUSH 08/28/19 15:45 30 mg ONETIME ONE Administration Ondansetron HCl 4 mg 08/28/19 15:44 08/28/19 15:52 Zofran IVPUSH 08/28/19 15:45 4 mg ONETIME ONE Administration - Re-Assessments/Exams Free Text/Narrative Re-Assessment/Exam: 08/28/19 18:14 pt felt much better at time of d/c, had mild BAR which went away with APAP cramps much better, given Benadryl 25 mg IV at d/c for residual cramps, abd soft and NT with good BS at d/c pt agreed to f/u with PCP in one week not clear why she has had such a severe cause of a "hangover" Departure - Departure Time of Disposition: 18:08 Disposition: Home, Self-Care 01 Condition: Good Clinical Impression: Severe dehydration, Intestinal cramps - Discharge Information *PRESCRIPTION DRUG MONITORING PROGRAM REVIEWED*: Not Applicable *COPY OF PRESCRIPTION DRUG MONITORING REPORT IN PATIENT JAYCEE: Not Applicable Prescriptions: Metoclopramide HCl 10 mg PO Q6H PRN #15 tablet PRN Reason: Nausea Instructions: Dehydration, Adult, Rehydration, Adult Forms: ED Department Discharge Additional Instructions: For cramping, take ibuprofen 200 mg 3 tabs 4 times a day for the next day. For cramping, soak in a warm tub or shower for 10 minutes every 1-2 hours as needed. For nausea, take metoclopramide 10 mg 1 tab every 6 hours as needed. Increase fluids without caffeine. Avoid heavy or fatty foods for tonight. Limit alcohol, preferably to one drink, as it seems to affect your adversely. See a primary care physician in the next week to recheck your labs (CBC and CMP). Return to ED if you are feeling worse. Sepsis Event Note (ED) - Evaluation Sepsis Screening Result: No Definite Risk - Focused Exam Vital Signs: Vital Signs Temp Pulse Resp BP Pulse Ox 08/28/19 14:57 36.8 C 120 H 18 129/85 100 - My Orders Last 24 Hours: My Active Orders 08/28/19 15:53 Sodium Chloride 0.9% [Saline Flush] 10 ml FLUSH ASDIRECTED PRN 08/28/19 18:07 diphenhydrAMINE [Benadryl] 25 mg IVPUSH ONETIME ONE - Assessment/Plan Last 24 Hours: My Active Orders 08/28/19 15:53 Sodium Chloride 0.9% [Saline Flush] 10 ml FLUSH ASDIRECTED PRN 08/28/19 18:07 diphenhydrAMINE [Benadryl] 25 mg IVPUSH ONETIME ONE
[2019-08-28] MEDS ORDERED: Sodium Chloride 0.9% 10 ML Syringe FLUSH PRN (15:53)
[2019-08-28] MEDS ORDERED: Acetaminophen 500 MG Tab PO ONE (16:57)
[2019-08-28] MEDS ORDERED: diphenhydrAMINE 50 MG/ML SDV IVPUSH ONE (18:07)
[2019-08-28 19:50] VITALS: BP 111/77; PULSE 84
== END 2019-08-28 18:25 | disposition home or self-care (01) ==
LOC: FB.ED 14:57
DX: E86.0 Dehydration (principal); R10.13 Epigastric pain; Z90.49 Acquired absence of other specified parts of digestive tract
CPT/HCPCS: 36415; 80053; 81001; 83690; 85025; 86140; 96361; 96374; 96375; 99284; 99284-25; A9270-GY; J1200; J1885; J2405; J7030

== ENCOUNTER 2019-10-17 12:39 | Emergency (ER) | payer SELFPAY ==
[2019-10-17] MEDS ORDERED: Ondansetron 4 MG/2 ML SDV IVPUSH ONE (13:06)
[2019-10-17] MEDS ORDERED: Sodium Chloride 0.9% 10 ML Syringe FLUSH PRN (13:06)
--- NOTE | 2019-10-17 13:10 | EDM.PDOC ---
ED HPI GENERAL MEDICAL PROBLEM - General Chief Complaint: Gastrointestinal Problem Stated Complaint: DEHYDRATED Time Seen by Provider: 10/17/19 13:08 Source of Information: Reports: Patient History Limitations: Reports: No Limitations - History of Present Illness INITIAL COMMENTS - FREE TEXT/NARRATIVE: Luisa complains of vomiting x 10 hrs. Sudden onset,unable to keep anything down. No diarrhea. MP last week. Denies any pain. - Related Data Allergies Allergy/AdvReac Type Severity Reaction Status Date / Time No Known Allergies Allergy Verified 12/06/18 15:49 Home Meds: Home Meds Metoclopramide HCl 10 mg PO Q6H PRN #15 tablet 08/28/19 [Rx] Past Medical History [employer]ER History: Reports: Hematologic History: Reports: Anemia - Infectious Disease History Infectious Disease History: Reports: Chicken Pox - Past Surgical History GI Surgical History: Reports: Appendectomy Social & Family History - Family History Family Medical History: Noncontributory - Tobacco Use Smoking Status *Q: Current Some Day Smoker Years of Tobacco use: 5 Packs/Tins Daily: 0.5 - Caffeine Use Caffeine Use: Reports: Tea Other Caffeine Use: daily Caffeine Use Comment: Minimal - Alcohol Use Days Per Week of Alcohol Use: 2 Number of Drinks Per Day: 5 Total Drinks Per Week: 10 - Recreational Drug Use Recreational Drug Use: Yes Drug Use in Last 12 Months: Yes Recreational Drug Type: Reports: Marijuana/Hashish Recreational Drug Use Frequency: Weekly - Sexual History Sexual History: Reports: Single Partner - Living Situation & Occupation Living situation: Reports: , with Spouse ED ROS GENERAL - Review of Systems Review Of Systems: Comprehensive ROS is negative, except as noted in HPI. ED EXAM, GI/ABD - Physical Exam Exam: See Below Exam Limited By: No Limitations General Appearance: Alert, WD/WN, No Apparent Distress Ears: Normal External Exam Nose: Normal Inspection, Normal Mucosa, No Blood Throat/Mouth: Normal Inspection, Normal Lips, Normal Teeth, Normal Gums, Normal Oropharynx, Normal Voice, No Airway Compromise Head: Atraumatic, Normocephalic Neck: Normal Inspection, Supple, Non-Tender, Full Range of Motion Course - Vital Signs Last Recorded V/S: Last Vital Signs Temp 98.6 F 10/17/19 12:48 Pulse 75 10/17/19 14:12 Resp 18 10/17/19 12:48 BP 125/85 10/17/19 14:12 Pulse Ox 100 10/17/19 12:48 - Orders/Labs/Meds Meds: Medications Discontinued Medications Generic Name Dose Route Start Last Admin Trade Name Devan PRN Reason Stop Dose Admin Sodium Chloride 1,000 mls @ 999 mls/hr 10/17/19 13:15 10/17/19 13:10 Normal Saline IV 999 mls/hr ASDIRECTED YULY Administration Ondansetron HCl 8 mg 10/17/19 13:06 10/17/19 13:15 Zofran IVPUSH 10/17/19 13:07 8 mg ONETIME ONE Administration Sodium Chloride 10 ml 10/17/19 13:06 10/17/19 13:05 Saline Flush FLUSH 10 ml ASDIRECTED PRN Administration Keep Vein Open Departure - Departure Time of Disposition: 19:05 Disposition: Home, Self-Care 01 Condition: Good Clinical Impression: Vomiting Qualifiers: Vomiting type: unspecified Vomiting Intractability: non-intractable Nausea presence: with nausea Qualified Code(s): R11.2 - Nausea with vomiting, unspecified - Discharge Information Instructions: Vomiting, Adult Referrals: PCP,None [Primary Care Provider] - (PRN) Forms: ED Department Discharge Sepsis Event Note (ED) - Evaluation Sepsis Screening Result: No Definite Risk - Problem List & Annotations (1) Vomiting SNOMED Code(s): 067772274 Code(s): R11.10 - VOMITING, UNSPECIFIED Status: Acute - Problem List Review Problem List Initiated/Reviewed/Updated: Yes - Assessment/Plan Plan: 1 L NS over an hour,and Zofran 8 mg IV onetime
[2019-10-17] MEDS ORDERED: Sodium Chloride 0.9% 1,000 ML IV SCH (13:15)
[2019-10-17 14:39] VITALS: BP 125/85; PULSE 75
== END 2019-10-17 14:25 | disposition home or self-care (01) ==
LOC: FB.ED 12:39
DX: R11.2 Nausea with vomiting, unspecified (principal); F17.210 Nicotine dependence, cigarettes, uncomplicated
CPT/HCPCS: 96361; 96374; 99283; J2405; J7030

== ENCOUNTER 2020-01-17 14:35 | Emergency (ER) | payer SELFPAY ==
[2020-01-17] MEDS ORDERED: Ondansetron 4 MG Tab.DIS PO ONE (14:36)
[2020-01-17] MEDS ORDERED: Sodium Chloride 0.9% 10 ML Syringe FLUSH PRN (14:47)
[2020-01-17] MEDS: Sodium Chloride 0.9% 1,000 ML IV ONE (15:05)
[2020-01-17] MEDS: Promethazine 25 MG in Sodium Chloride 0.9% 50 ML IV ONE (15:05)
--- NOTE | 2020-01-17 15:07 | EDM.PDOC ---
ED HPI GENERAL MEDICAL PROBLEM - General Chief Complaint: Gastrointestinal Problem Stated Complaint: VOMITING Time Seen by Provider: 01/17/20 14:40 Source of Information: Reports: Patient History Limitations: Reports: No Limitations - History of Present Illness INITIAL COMMENTS - FREE TEXT/NARRATIVE: 29-year-old female who reports that she has had a sore throat and malaise and nasal congestion for the past 6 days. She reports that last night she drank alcohol and she states that she had not drank for some time. She did drink to excess. Anaprox before a.m., she began to have nausea and had vomiting and she has had vomiting 6 since then. There is been no blood in her emesis. She has had no abdominal pain or diarrhea. She does feel somewhat weak and dizzy. She has been unable to keep any liquids down. She has no body aches and she really is not even complaining of a sore throat. When asked, she reports she has 0/10 level pain at present. No noted fevers or chills. No dysuria or hematuria. She states she is currently on her menses and denies any possibility of . She does, however, report that she has been feeling somewhat short of breath intermittently over the past week as well. There are no other associated signs or symptoms. There are no other modifying factors. Onset: Today (Vomiting began at 4 AM. Sore throat, nasal congestion and intermittent shortness of breath with malaise began) Duration: Constant Location: Reports: Other (No pain.) Quality: Reports: Other (Not applicable) Improves with: Reports: None Worsens with: Reports: None Context: Reports: Other Associated Symptoms: Reports: Nausea/Vomiting Treatments SMELLER: Reports: Other (see below) (Nothing.) - Related Data Allergies Allergy/AdvReac Type Severity Reaction Status Date / Time No Known Allergies Allergy Verified 01/17/20 14:46 Home Meds: Home Meds Metoclopramide HCl 10 mg PO Q6H PRN #15 tablet 08/28/19 [Rx] Ondansetron [Zofran ODT] 4 mg PO Q6H PRN #8 tab.dis 01/17/20 [Rx] Penicillin V Potassium 500 mg PO BID 10 Days #20 tablet 01/17/20 [Rx] Past Medical History - Past Health History Medical/Surgical History: Denies Medical/Surgical History (No chronic medical problems. Surgical history as detailed below.) Hematologic History: Reports: Anemia - Infectious Disease History Infectious Disease History: Reports: Chicken Pox - Past Surgical History GI Surgical History: Reports: Appendectomy Social & Family History - Tobacco Use Tobacco Use Status *Q: Former Tobacco User (Quit 1-2 years ago according to the patient.) - Caffeine Use Caffeine Use: Reports: Tea Other Caffeine Use: daily Caffeine Use Comment: Minimal - Alcohol Use Alcohol Use History: Yes Alcohol Use Frequency: Binges (Heavy drinking last night.) - Sexual History Sexual History: Reports: Single Partner - Living Situation & Occupation Living situation: Reports: , with Spouse ED ROS GENERAL - Review of Systems Review Of Systems: See Below Constitutional: Reports: No Symptoms HEENT: Reports: Throat Pain, Other (Nasal congestion) Respiratory: Reports: Shortness of Breath Cardiovascular: Reports: No Symptoms GI/Abdominal: Reports: Nausea, Vomiting. Denies: Abdominal Pain, Diarrhea : Reports: No Symptoms, Other (Currently on her menses.) Musculoskeletal: Reports: No Symptoms Skin: Reports: No Symptoms Neurological: Reports: No Symptoms Hematologic/Lymphatic: Reports: No Symptoms Immunologic: Reports: No Symptoms ED EXAM, GENERAL - Physical Exam Exam: See Below Exam Limited By: No Limitations General Appearance: Alert, Moderate Distress (Appears uncomfortable. HEENT or distress.) Eye Exam: Bilateral Eye: EOMI, Normal Inspection (Sclera are anicteric.) Ears: Normal External Exam, Hearing Grossly Normal Ear Exam: Bilateral Ear: Auricle Normal Nose: No Blood, Nasal Drainage Throat/Mouth: Normal Voice, No Airway Compromise, Other (Dry mucous membranes) Head: Atraumatic, Normocephalic Neck: Normal Inspection, Supple, Non-Tender, Full Range of Motion Respiratory/Chest: No Respiratory Distress, No Accessory Muscle Use, Chest Non- Tender, Other (Good air movement) Cardiovascular: Normal Peripheral Pulses (.), Regular Rate, Rhythm Peripheral Pulses: 2+: Radial (L), Radial (R) GI/Abdominal: Normal Bowel Sounds, Soft, Non-Tender, No Mass Back Exam: Normal Inspection, Full Range of Motion Extremities: Normal Inspection, Normal Range of Motion, Non-Tender, No Pedal Edema, Normal Capillary Refill Neurological: Alert, Oriented, CN II-XII Intact, Normal Cognition, No Motor/Sensory Deficits Skin Exam: Warm, Intact, Normal Color, No Rash, Diaphoretic (Slightly) Course - Vital Signs Last Recorded V/S: Last Vital Signs Temp 37.1 C 01/17/20 18:12 Pulse 69 01/17/20 18:12 Resp 18 01/17/20 18:12 BP 113/72 01/17/20 18:12 Pulse Ox 100 01/17/20 18:12 - Orders/Labs/Meds Orders: Active Orders 24 hr Category Date Time Status Peripheral IV Insertion Adult [OM.PC] Routine Oth 01/17/20 14:47 Ordered Labs: Laboratory Tests 01/17/20 01/17/20 01/17/20 Range/Units 15:08 15:08 15:12 WBC 9.2 (3.0-10.3) x10-3/uL RBC 4.70 (3.60-5.20) x10(6)uL Hgb 10.7 L (11.4-15.5) g/dL Hct 34.7 (34.2-48.2) % MCV 73.8 L (76.7-100.5) fL MCH 22.8 L (23.9-33.9) pg MCHC 30.9 L (31.9-34.8) g/dL RDW 17.9 H (12.3-16.5) % Plt Count 403 (151-488) x10(3)uL MPV 9.3 (7.1-12.4) fL Neut % (Auto) 75.6 (30.8-76.2) % Lymph % (Auto) 19.5 (18.4-52.1) % [place] % (Auto) 4.1 L (4.4-15.7) % Eos % (Auto) 0.4 L (0.6-8.1) % Baso % (Auto) 0.4 (0.2-1.5) % Neut # (Auto) 7.0 H (1.5-6.3) x10-3/uL Lymph # (Auto) 1.8 (1.0-4.4) x10-3/uL [place] # (Auto) 0.4 (0.3-1.0) x10-3/uL Eos # (Auto) 0.0 (0.0-0.8) x10-3/uL Baso # (Auto) 0.0 (0.0-0.1) x10-3/uL Sodium 144 (135-145) mmol/L Potassium 3.4 L (3.5-5.3) mmol/L Chloride 103 (100-110) mmol/L Carbon Dioxide 26 (21-32) mmol/L BUN 7 (7-18) mg/dL Creatinine 0.8 (0.55-1.02) mg/dL Est Cr Clr Drug Dosing TNP Estimated GFR (MDRD) > 60 (>60) BUN/Creatinine Ratio 8.8 L (9-20) Glucose 102 (80-116) mg/dL Calcium 9.9 (8.6-10.2) mg/dL Magnesium 1.9 (1.8-2.5) mg/dL Total Bilirubin 0.3 (0.1-1.3) mg/dL AST 19 D (5-25) IU/L ALT 20 D (12-36) U/L Alkaline Phosphatase 98 (56-112) IU/L Total Protein 8.7 H (6.0-8.0) g/dL Albumin 4.4 (3.5-5.2) g/dL Globulin 4.3 g/dL Albumin/Globulin Ratio 1.0 Urine Color (YELLOW) Urine Appearance (CLEAR) Urine pH (5.0-6.5) Ur Specific [place] (1.010-1.025) Urine Protein (NEGATIVE) mg/dL Urine Glucose (UA) (NORMAL) mg/dL Urine Ketones (NEGATIVE) mg/dL Urine Occult Blood (NEGATIVE) Urine Nitrite (NEGATIVE) Urine Bilirubin (NEGATIVE) Urine Urobilinogen (NEGATIVE) mg/dL Ur Leukocyte Esterase (NEGATIVE) Urine RBC (0-5) Urine WBC (0-5) Ur Squamous Epith Cells (NS,R,O) Urine Bacteria (NS) Urine Mucus (NS) Urine HCG, Qual (NEGATIVE) SARS-CoV-2 RNA ([place]) Positive H (NEGATIVE) Group A Strep (PCR) Positive H (NEGATIVE) 01/17/20 01/17/20 Range/Units 15:13 15:13 WBC (3.0-10.3) x10-3/uL RBC (3.60-5.20) x10(6)uL Hgb (11.4-15.5) g/dL Hct (34.2-48.2) % MCV (76.7-100.5) fL MCH (23.9-33.9) pg MCHC (31.9-34.8) g/dL RDW (12.3-16.5) % Plt Count (151-488) x10(3)uL MPV (7.1-12.4) fL Neut % (Auto) (30.8-76.2) % Lymph % (Auto) (18.4-52.1) % [place] % (Auto) (4.4-15.7) % Eos % (Auto) (0.6-8.1) % Baso % (Auto) (0.2-1.5) % Neut # (Auto) (1.5-6.3) x10-3/uL Lymph # (Auto) (1.0-4.4) x10-3/uL [place] # (Auto) (0.3-1.0) x10-3/uL Eos # (Auto) (0.0-0.8) x10-3/uL Baso # (Auto) (0.0-0.1) x10-3/uL Sodium (135-145) mmol/L Potassium (3.5-5.3) mmol/L Chloride (100-110) mmol/L Carbon Dioxide (21-32) mmol/L BUN (7-18) mg/dL Creatinine (0.55-1.02) mg/dL Est Cr Clr Drug Dosing Estimated GFR (MDRD) (>60) BUN/Creatinine Ratio (9-20) Glucose (80-116) mg/dL Calcium (8.6-10.2) mg/dL Magnesium (1.8-2.5) mg/dL Total Bilirubin (0.1-1.3) mg/dL AST (5-25) IU/L ALT (12-36) U/L Alkaline Phosphatase (56-112) IU/L Total Protein (6.0-8.0) g/dL Albumin (3.5-5.2) g/dL Globulin g/dL Albumin/Globulin Ratio Urine Color Yellow (YELLOW) Urine Appearance Slightly cloudy (CLEAR) Urine pH 9.0 H (5.0-6.5) Ur Specific [place] 1.015 (1.010-1.025) Urine Protein Negative (NEGATIVE) mg/dL Urine Glucose (UA) Normal (NORMAL) mg/dL Urine Ketones 15 H (NEGATIVE) mg/dL Urine Occult Blood Negative (NEGATIVE) Urine Nitrite Negative (NEGATIVE) Urine Bilirubin Negative (NEGATIVE) Urine Urobilinogen Normal (NEGATIVE) mg/dL Ur Leukocyte Esterase Negative (NEGATIVE) Urine RBC 0-5 (0-5) Urine WBC 0-5 (0-5) Ur Squamous Epith Cells Few H (NS,R,O) Urine Bacteria Few H (NS) Urine Mucus Many H (NS) Urine HCG, Qual Negative (NEGATIVE) SARS-CoV-2 RNA ([place]) (NEGATIVE) Group A Strep (PCR) (NEGATIVE) Meds: Medications Discontinued Medications Generic Name Dose Route Start Last Admin Trade Name Devan PRN Reason Stop Dose Admin Ceftriaxone Sodium 1 gm 01/17/20 16:46 01/17/20 17:58 Rocephin IVPUSH 01/17/20 16:47 1 gm ONETIME ONE Administration Promethazine HCl 25 mg/ Sodium 51 mls @ 200 mls/hr 01/17/20 14:46 01/17/20 15:05 Chloride IV 01/17/20 15:01 200 mls/hr ONETIME ONE Administration Sodium Chloride 1,000 mls @ 999 mls/hr 01/17/20 14:46 01/17/20 15:05 Normal Saline IV 01/17/20 15:46 999 mls/hr .BOLUS ONE Administration Sodium Chloride 1,000 mls @ 150 mls/hr 01/17/20 15:00 01/17/20 16:15 Normal Saline IV 150 mls/hr ASDIRECTED YULY Administration Sodium Chloride 10 ml 01/17/20 14:47 Saline Flush FLUSH ASDIRECTED PRN Keep Vein Open - Re-Assessments/Exams Free Text/Narrative Re-Assessment/Exam: 01/17/20 17:35: The patient has received all of her IV fluids. She also has received all of her Phenergan IV. She has been able to take by mouth without further vomiting. She feels much improved. Her COVID 19 test was positive and her strep was positive as well. She was given Rocephin 1 g IV to begin treatment of the strep. The plan will be to discharge the patient with penicillin VK 500 mg twice daily for the next 10 days. I will also give her a take-home pack of Zofran 4 mg ODT and a prescription for the same. She will need to self 14 and a [place] exposure or contacts that she had with other people will need to be informed and they will need to self quarantine as well as get testing through their primary doctor for COVID. She can also take ibuprofen and Tylenol as needed for pain or fever. Departure - Departure Time of Disposition: 17:48 Disposition: Home, Self-Care 01 Condition: Good (Improved) Clinical Impression: Dehydration, Streptococcal pharyngitis, COVID-19 virus infection Vomiting Qualifiers: Vomiting type: unspecified Vomiting Intractability: non-intractable Nausea presence: with nausea Qualified Code(s): R11.2 - Nausea with vomiting, unspecified - Discharge Information Prescriptions: Penicillin V Potassium 500 mg PO BID 10 Days #20 tablet Ondansetron [Zofran ODT] 4 mg PO Q6H PRN #8 tab.dis PRN Reason: Nausea/Vomiting Instructions: COVID-19 Frequently Asked Questions, Nausea and Vomiting, Adult, [id number], Strep Throat, Adult, [id number], Dehydration, Adult, [id number], COVID-19: How to Protect Yourself and Others - CDC, Prevent the Spread of COVID-19 if You Are Sick - [facility] [place] Referrals: PCP,None [Primary Care Provider] - Forms: ED Department Discharge Additional Instructions: Your blood tests were reassuringly normal. You do have strep throat. You also have COVID 19 infection. You were dehydrated but we have corrected this with the IV fluids. I suspect that the cause of your vomiting is multifactorial. It is possibly due to the strep throat but more so due to your overuse of alcohol. You should avoid overuse of alcohol in the future. Rest. Drink small amounts of fluids frequently. Medication as prescribed (pen VK 500 mg, Zofran 4 mg ODT). These prescriptions were sent electronically to [facility]. You will need to inform all of the people you came in contact with yesterday that you have COVID 19 and they will need to 14 as you will need to be doing and they will need to seek out through there primary provider to get testing for COVID 19. You can take Tylenol and ibuprofen as needed for fever or pain. Back to the emergency department for unrelenting vomiting, severe weakness, shortness of breath or any other concerning sign or symptom. Sepsis Event Note (ED) - Evaluation Sepsis Screening Result: No Definite Risk - Focused Exam Vital Signs: Vital Signs Temp Pulse Resp BP Pulse Ox 01/17/20 18:12 37.1 C 69 18 113/72 100 01/17/20 14:35 36.8 C 83 16 132/94 H 100 - My Orders Last 24 Hours: My Active Orders 01/17/20 14:47 Peripheral IV Insertion Adult [OM.PC] Routine - Assessment/Plan Last 24 Hours: My Active Orders 01/17/20 14:47 Peripheral IV Insertion Adult [OM.PC] Routine
[2020-01-17 16:05] LABS: STREP A BY PCR POSITIVE (NEGATIVE)
[2020-01-17] MEDS: Sodium Chloride 0.9% 1,000 ML IV SCH (16:15)
[2020-01-17 16:28] LABS: CORONAVIRUS COVID-19 NAA POSITIVE (NEGATIVE)
[2020-01-17] MEDS: cefTRIAXone 1 GM Vial IVPUSH ONE (17:58)
[2020-01-17 20:20] VITALS: BP 113/72; PULSE 69
== END 2020-01-17 18:20 | disposition home or self-care (01) ==
LOC: FB.ED 14:35
DX: U07.1 COVID-19 (principal); J02.0 Streptococcal pharyngitis; E86.0 Dehydration; R11.2 Nausea with vomiting, unspecified; Z87.891 Personal history of nicotine dependence; Z90.49 Acquired absence of other specified parts of digestive tract
CPT/HCPCS: 36415; 80053; 81001; 81025; 83735; 85025; 87635; 87651; 96374; 96375; 99284; A9270; J0696; J2550; J7030; U0002

== ENCOUNTER 2022-05-31 12:44 | Emergency (ER) | payer SELFPAY ==
[2022-05-31] MEDS: Sodium Chloride 0.9% 1,000 ML IV SCH (13:21)
[2022-05-31] MEDS: Ondansetron 4 MG/2 ML SDV IVPUSH ONE (13:27)
[2022-05-31 13:36] LABS: ESTIMATED GFR 100 mL/min (>60)
[2022-05-31 16:34] VITALS: BP 137/102; PULSE 90
== END 2022-05-31 14:31 | disposition home or self-care (01) ==
LOC: FB.ED 12:44
DX: R07.9 Chest pain, unspecified (principal); D64.9 Anemia, unspecified
CPT/HCPCS: 36415; 71045; 80053; 81001; 84484; 85025; 93005; 96374; 99285-25; J2405; J7030

== ENCOUNTER 2022-07-24 09:00 | Day surgery (SDC) | payer SELFPAY ==
[2022-07-24] MEDS ORDERED: Midazolam 1 MG/ML 2 ML SDV IV ONE (09:01)
[2022-07-24] MEDS ORDERED: Propofol 200 MG/20 ML SDV IV ONE (09:01)
[2022-07-24] MEDS ORDERED: Glycopyrrolate 0.2 MG/ML 5 ML MDV IV ONE (09:01)
[2022-07-24] MEDS ORDERED: Lidocaine 2% 5 ML SDV IV ONE (09:01)
[2022-07-24] MEDS ORDERED: Ketamine 500 mg/10 ML MDV IV ONE (09:01)
[2022-07-24] MEDS ORDERED: Lactated Ringers 1,000 ML IV SCH (09:15)
[2022-07-24] MEDS ORDERED: Sodium Chloride 0.9% 10 ML Syringe FLUSH PRN (09:15)
[2022-07-24 12:32] VITALS: BP 122/85; PULSE 94
== END 2022-07-24 12:28 | disposition home or self-care (01) ==
LOC: FB.SDS 09:00
PROVIDERS: ATTEND Surgery
DX: K29.51 Unspecified chronic gastritis with bleeding (principal); K21.00 Gastro-esophageal reflux disease with esophagitis, without bleeding; K29.80 Duodenitis without bleeding; B96.81 Helicobacter pylori [H. pylori] as the cause of diseases classified elsewhere; D50.8 Other iron deficiency anemias; Z79.899 Other long term (current) drug therapy; Z86.19 Personal history of other infectious and parasitic diseases; Z87.891 Personal history of nicotine dependence
CPT/HCPCS: 00731; 43239; 88305; 88342; J2250; J2704; J3490; J7120

== ENCOUNTER 2022-09-21 05:57 | Emergency (ER) | payer SELFPAY ==
[2022-09-21 06:30] LABS: BILIRUBIN,URINE SMALL (NEGATIVE); GLUCOSE,URINE NORMAL (NORMAL); KETONES,URINE NEGATIVE (NEGATIVE); LEUKOCYTE ESTERASE,URINE NEGATIVE (NEGATIVE); NITRITE,URINE NEGATIVE (NEGATIVE); OCCULT BLOOD,URINE NEGATIVE (NEGATIVE); PROTEIN,URINE NEGATIVE (NEGATIVE); UROBILINOGEN,URINE NORMAL (NEGATIVE)
[2022-09-21 06:32] LABS: BASOPHILS ABSOLUTE AUTO 0.1 x10-3/uL (0.0-0.1); BASOPHILS PERCENT AUTO 0.8 % (0.2-1.5); EOSINOPHILS ABSOLUTE AUTO 0.2 x10-3/uL (0.0-0.8); EOSINOPHILS PERCENT AUTO 2.2 % (0.6-8.1); HEMATOCRIT 34.7 % (34.2-48.2); LYMPHOCYTES ABSOLUTE AUTO 2.1 x10-3/uL (1.0-4.4); LYMPHOCYTES PERCENT AUTO 30.9 % (18.4-52.1); MEAN CORPUSCULAR HGB CONC 31.7 g/dL (31.9-34.8); MEAN CORPUSCULAR VOLUME 75.9 fL (76.7-100.5); MEAN PLATELET VOLUME 9.2 fL (7.1-12.4); MONOCYTES ABSOLUTE AUTO 0.5 x10-3/uL (0.3-1.0); MONOCYTES PERCENT AUTO 7.8 % (4.4-15.7); NEUTROPHILS PERCENT AUTO 58.3 % (30.8-76.2); PLATELET COUNT,PLT 330 x10(3)uL (151-488); RED BLOOD CELL COUNT 4.57 x10(6)uL (3.60-5.20); RED CELL DISTRIBUTION WIDTH 18.7 % (12.3-16.5); WHITE BLOOD CELL COUNT,WBC 6.8 x10-3/uL (3.0-10.3)
[2022-09-21 06:35] LABS: BLOOD UREA NITROGEN,BUN 14 mg/dL (7-18); BUN/CREATININE RATIO 15.6 (9-20); CALCIUM 9.5 mg/dL (8.6-10.2); CARBON DIOXIDE,CO2 29 mmol/L (21-32); CHLORIDE,CL 97 mmol/L (100-110); CREATININE 0.9 mg/dL (0.55-1.02); EST CRCL DRUG DOSING (CG) 73.21 mL/min; ESTIMATED GFR 87 mL/min (>60); GLUCOSE RANDOM 110 mg/dL (80-116); POTASSIUM,K 3.1 mmol/L (3.5-5.3); SODIUM,NA 131 mmol/L (135-145)
[2022-09-21 06:37] LABS: APPEARANCE,URINE CLOUDY (CLEAR); BACTERIA,URINE FEW (NS); COLOR,URINE YELLOW (YELLOW); MUCUS,URINE MANY (NS); RBC,URINE 0-5 (0-5); SQUAMOUS EPITHELIAL CELLS,UR MODERATE (NS,R,O); WBC,URINE 0-5 (0-5)
[2022-09-21] MEDS ORDERED: Pantoprazole 40 MG Vial IVPUSH ONE (06:39)
[2022-09-21] MEDS ORDERED: Ketorolac 30 MG/ML SDV IVPUSH ONE (06:39)
[2022-09-21] MEDS ORDERED: Ondansetron 4 MG/2 ML SDV IVPUSH ONE (06:39)
[2022-09-21] MEDS ORDERED: Sodium Chloride 0.9% 1,000 ML IV SCH (06:45)
[2022-09-21] MEDS ORDERED: Prochlorperazine 10 MG in Sodium Chloride 0.9% 50 ML IV ONE (07:59)
[2022-09-21 08:57] VITALS: BP 117/84; PULSE 81
== END 2022-09-21 09:00 | disposition home or self-care (01) ==
LOC: FB.ED 05:57
DX: E86.0 Dehydration (principal); E87.6 Hypokalemia; E87.1 Hypo-osmolality and hyponatremia; D64.9 Anemia, unspecified; G44.201 Tension-type headache, unspecified, intractable; Z86.16 Personal history of COVID-19; Z79.899 Other long term (current) drug therapy
CPT/HCPCS: 36415; 80048; 81001; 85025; 96361; 96365; 96375; 99284; C9113; J0780; J1885; J2405; J3490; J7030

== ENCOUNTER 2024-01-15 17:58 | Emergency (ER) | payer SELFPAY ==
[2024-01-15] MEDS ORDERED: Acetaminophen/oxyCODONE 325-5 MG Tab PO ONE (17:59)
[2024-01-15] MEDS ORDERED: Ondansetron 4 MG Tab.DIS PO ONE (17:59)
[2024-01-15] MEDS: Ondansetron 4 MG/2 ML SDV IVPUSH ONE (18:24)
[2024-01-15] MEDS: Morphine 4 MG/ML VIAL IVPUSH ONE (18:24)
[2024-01-15] MEDS: Ketorolac 30 MG/ML SDV IVPUSH ONE (18:24)
[2024-01-15 18:50] LABS: BASOPHILS ABSOLUTE AUTO 0.1 x10-3/uL (0.0-0.1); EOSINOPHILS ABSOLUTE AUTO 0.3 x10-3/uL (0.0-0.8); HEMATOCRIT 34.9 % (34.2-48.2); HEMOGLOBIN 11.3 g/dL (11.4-15.5); LYMPHOCYTES ABSOLUTE AUTO 4.9 x10-3/uL (1.0-4.4); LYMPHOCYTES PERCENT AUTO 42.7 % (18.4-52.1); MEAN CORPUSCULAR HEMOGLOBIN 26.2 pg (23.9-33.9); MEAN CORPUSCULAR HGB CONC 32.3 g/dL (31.9-34.8); MEAN CORPUSCULAR VOLUME 80.9 fL (76.7-100.5); MEAN PLATELET VOLUME 10.2 fL (7.1-12.4); MONOCYTES ABSOLUTE AUTO 0.8 x10-3/uL (0.3-1.0); MONOCYTES PERCENT AUTO 7.3 % (4.4-15.7); NEUTROPHILS ABSOLUTE AUTO 5.3 x10-3/uL (1.5-6.3); PLATELET COUNT,PLT 321 x10(3)uL (151-488); RED CELL DISTRIBUTION WIDTH 20.1 % (12.3-16.5); WHITE BLOOD CELL COUNT,WBC 11.5 x10-3/uL (3.0-10.3)
[2024-01-15 18:54] LABS: RED BLOOD CELL COUNT 4.32 x10(6)uL (3.60-5.20)
[2024-01-15 18:56] LABS: BLOOD UREA NITROGEN,BUN 14 mg/dL (7-18); BUN/CREATININE RATIO 17.5 (9-20); CALCIUM 9.7 mg/dL (8.6-10.2); CARBON DIOXIDE,CO2 25 mmol/L (21-32); CHLORIDE,CL 105 mmol/L (100-110); CREATININE 0.8 mg/dL (0.55-1.02); ESTIMATED GFR 99 mL/min (>60); GLUCOSE RANDOM 138 mg/dL (80-116); POTASSIUM,K 3.4 mmol/L (3.5-5.3); SODIUM,NA 144 mmol/L (135-145)
[2024-01-15 19:02] LABS: A/G RATIO 1.4; ALANINE AMINOTRANSFERASE,ALT 21 U/L (12-36); ALBUMIN 4.2 g/dL (3.5-5.2); ALKALINE PHOSPHATASE 84 IU/L (56-112); ASPARTATE AMNIOTRANSFERASE,AST 10 IU/L (5-25); BILIRUBIN TOTAL 0.2 mg/dL (0.1-1.3); PROTEIN TOTAL,TP 7.3 g/dL (6.0-8.0)
[2024-01-15 19:10] VITALS: BP 143/98; PULSE 59
[2024-01-15] MEDS: Sodium Chloride 0.9% 1,000 ML IV SCH (19:23)
[2024-01-15] MEDS: diphenhydrAMINE 50 MG/ML SDV IVPUSH ONE (19:23)
[2024-01-15] MEDS: Prochlorperazine 10 MG in Sodium Chloride 0.9% 50 ML IV ONE (19:24)
[2024-01-15 19:37] LABS: BILIRUBIN,URINE NEGATIVE (NEGATIVE); GLUCOSE,URINE NORMAL (NORMAL); KETONES,URINE NEGATIVE (NEGATIVE); LEUKOCYTE ESTERASE,URINE SMALL (NEGATIVE); NITRITE,URINE NEGATIVE (NEGATIVE); OCCULT BLOOD,URINE LARGE (NEGATIVE); PROTEIN,URINE 100 mg/dL (NEGATIVE); UROBILINOGEN,URINE 1 mg/dL (NEGATIVE)
[2024-01-15 19:42] LABS: APPEARANCE,URINE SLIGHTLY CLOUDY (CLEAR); COLOR,URINE YELLOW (YELLOW)
[2024-01-15 19:43] LABS: BACTERIA,URINE FEW (NS); RBC,URINE 75-100 (0-5); SQUAMOUS EPITHELIAL CELLS,UR FEW (NS,R,O)
[2024-01-15] MEDS ORDERED: Sodium Chloride 0.9% 10 ML Syringe FLUSH PRN (20:31)
[2024-01-15] MEDS: fentaNYL 100 MCG/2 ML SDV IVPUSH PRN (20:33)
[2024-01-15] MEDS: Iopamidol 755 Mg/ML 100 ML Bottle IV SCH (20:34)
[2024-01-15] MEDS: cefTRIAXone 2 GM Vial IVPUSH ONE (21:11)
[2024-01-15] MEDS: Tamsulosin 0.4 MG Cap.ER PO ONE (21:11)
[2024-01-15] MEDS: Acetaminophen/oxyCODONE 325-5 MG Tab PO STA (21:11)
== END 2024-01-15 22:55 | disposition home or self-care (01) ==
LOC: FB.ED 17:58
DX: N13.2 Hydronephrosis with renal and ureteral calculous obstruction (principal); R82.71 Bacteriuria; R82.81 Pyuria; F17.210 Nicotine dependence, cigarettes, uncomplicated; Z86.16 Personal history of COVID-19; Z90.49 Acquired absence of other specified parts of digestive tract; Z79.899 Other long term (current) drug therapy
CPT/HCPCS: 36415; 74177; 80053; 81001; 81025; 85025; 87086; 96361; 96365; 96375; 99284-25; A9270-GY; J0696; J0780; J1200; J1885; J2270; J2405; J3010; J3490; J7030; Q0162; Q9967

== ENCOUNTER 2024-08-24 10:38 | Inpatient (IN) | payer MEDICAID ==
[2024-08-24] MEDS: Sodium Chloride 0.9% 10 ML Syringe FLUSH PRN (10:55)
[2024-08-24] MEDS: Ketorolac 30 MG/ML SDV IVPUSH ONE (10:58)
[2024-08-24 11:01] LABS: GLUCOSE,URINE NORMAL (NORMAL); OCCULT BLOOD,URINE MODERATE (NEGATIVE)
[2024-08-24 11:09] LABS: MEAN PLATELET VOLUME 8.8 fL (7.1-12.4); PLATELET COUNT,PLT 234 x10(3)uL (151-488); RED BLOOD CELL COUNT 3.96 x10(6)uL (3.60-5.20); RED CELL DISTRIBUTION WIDTH 18.1 % (12.3-16.5); WHITE BLOOD CELL COUNT,WBC 10.4 x10-3/uL (3.0-10.3)
[2024-08-24 11:10] LABS: APPEARANCE,URINE CLOUDY (CLEAR); SQUAMOUS EPITHELIAL CELLS,UR RARE (NS,R,O)
[2024-08-24 11:11] LABS: BLOOD UREA NITROGEN,BUN 10 mg/dL (7-18); CARBON DIOXIDE,CO2 26 mmol/L (21-32); CHLORIDE,CL 101 mmol/L (100-110); CREATININE 1.1 mg/dL (0.55-1.02); EST CRCL DRUG DOSING (CG) 56.23 mL/min; ESTIMATED GFR 67 mL/min (>60); GLUCOSE RANDOM 115 mg/dL (80-116); POTASSIUM,K 3.4 mmol/L (3.5-5.3); SODIUM,NA 136 mmol/L (135-145)
[2024-08-24 11:16] LABS: A/G RATIO 1.0; ALANINE AMINOTRANSFERASE,ALT 20 U/L (12-36); ASPARTATE AMNIOTRANSFERASE,AST 12 IU/L (5-25); BILIRUBIN TOTAL 0.5 mg/dL (0.1-1.3); PROTEIN TOTAL,TP 6.9 g/dL (6.0-8.0)
[2024-08-24 11:27] LABS: AMPHETAMINES SCREEN, URINE NEGATIVE (NEGATIVE); BUPRENORPHINE SCREEN,URINE NEGATIVE (NEGATIVE); METHADONE SCREEN, URINE NEGATIVE (NEGATIVE); METHAMPHETAMINE SCREEN, URINE NEGATIVE (NEGATIVE); OXYCODONE SCREEN,URINE NEGATIVE (NEGATIVE)
[2024-08-24 11:28] LABS: BAND PERCENT MAN 2 % (0-6); LYMPHOCYTES PERCENT MAN 2 % (13-37); MONOCYTES PERCENT MAN 1 % (4-12); SEG NEUTROPHILS PERCENT MAN 95 % (46-82)
[2024-08-24] MEDS: Ondansetron 4 MG/2 ML SDV IVPUSH ONE (12:59)
[2024-08-24] MEDS ORDERED: Heparin Sodium 5,000 Units/ML Vial SUBCUT SCH (16:00)
[2024-08-24] MEDS ORDERED: Naloxone 0.4 MG/ML SDV IVPUSH PRN (16:01)
[2024-08-24] MEDS: Potassium Chloride 20 MEQ Tab.ER PO ONE (17:04)
[2024-08-24] MEDS: Ondansetron 4 MG/2 ML SDV IVPUSH PRN (22:04)
[2024-08-25 06:18] LABS: BASOPHILS ABSOLUTE AUTO 0.0 x10-3/uL (0.0-0.1); BASOPHILS PERCENT AUTO 0.4 % (0.2-1.5); EOSINOPHILS ABSOLUTE AUTO 0.0 x10-3/uL (0.0-0.8); EOSINOPHILS PERCENT AUTO 0.1 % (0.6-8.1); LYMPHOCYTES ABSOLUTE AUTO 0.7 x10-3/uL (1.0-4.4); LYMPHOCYTES PERCENT AUTO 7.9 % (18.4-52.1); MEAN PLATELET VOLUME 8.7 fL (7.1-12.4); MONOCYTES ABSOLUTE AUTO 0.9 x10-3/uL (0.3-1.0); MONOCYTES PERCENT AUTO 10.3 % (4.4-15.7); NEUTROPHILS ABSOLUTE AUTO 7.2 x10-3/uL (1.5-6.3); NEUTROPHILS PERCENT AUTO 81.3 % (30.8-76.2); PLATELET COUNT,PLT 192 x10(3)uL (151-488); RED CELL DISTRIBUTION WIDTH 17.7 % (12.3-16.5); WHITE BLOOD CELL COUNT,WBC 8.9 x10-3/uL (3.0-10.3)
[2024-08-25 06:22] LABS: CARBON DIOXIDE,CO2 28 mmol/L (21-32); CHLORIDE,CL 102 mmol/L (100-110); CREATININE 0.8 mg/dL (0.55-1.02); EST CRCL DRUG DOSING (CG) 81.46 mL/min; ESTIMATED GFR 98 mL/min (>60); GLUCOSE RANDOM 109 mg/dL (80-116); POTASSIUM,K 3.7 mmol/L (3.5-5.3); SODIUM,NA 137 mmol/L (135-145)
[2024-08-25 06:23] LABS: BLOOD UREA NITROGEN,BUN < 5 mg/dL (7-18)
[2024-08-25 06:31] LABS: RED BLOOD CELL COUNT 3.59 x10(6)uL (3.60-5.20)
[2024-08-25] MEDS: VANCOmycin 1.25 GM/250 ML 1.25 GM in Premix Bag 1 BAG IV ONE (10:49)
[2024-08-25 13:09] LABS: LACTIC ACID 1.8 mmol/L (0.4-2.0)
[2024-08-25 21:21] LABS: GLUCOSE,URINE NORMAL (NORMAL); OCCULT BLOOD,URINE MODERATE (NEGATIVE)
[2024-08-25 21:22] LABS: APPEARANCE,URINE CLEAR (CLEAR); SQUAMOUS EPITHELIAL CELLS,UR FEW (NS,R,O)
[2024-08-25 22:12] LABS: BASOPHILS ABSOLUTE AUTO 0.0 x10-3/uL (0.0-0.1); BASOPHILS PERCENT AUTO 0.2 % (0.2-1.5); EOSINOPHILS ABSOLUTE AUTO 0.0 x10-3/uL (0.0-0.8); EOSINOPHILS PERCENT AUTO 0.1 % (0.6-8.1); LYMPHOCYTES ABSOLUTE AUTO 0.6 x10-3/uL (1.0-4.4); LYMPHOCYTES PERCENT AUTO 5.7 % (18.4-52.1); MEAN PLATELET VOLUME 8.5 fL (7.1-12.4); MONOCYTES ABSOLUTE AUTO 0.9 x10-3/uL (0.3-1.0); MONOCYTES PERCENT AUTO 9.1 % (4.4-15.7); NEUTROPHILS ABSOLUTE AUTO 8.6 x10-3/uL (1.5-6.3); NEUTROPHILS PERCENT AUTO 84.9 % (30.8-76.2); PLATELET COUNT,PLT 173 x10(3)uL (151-488); RED CELL DISTRIBUTION WIDTH 18.3 % (12.3-16.5); WHITE BLOOD CELL COUNT,WBC 10.2 x10-3/uL (3.0-10.3)
[2024-08-25 22:19] LABS: RED BLOOD CELL COUNT 3.40 x10(6)uL (3.60-5.20)
[2024-08-25] MEDS ORDERED: Iopamidol 755 Mg/ML 100 ML Bottle IV SCH ×2 (22:45)
[2024-08-25] MEDS: Iopamidol 755 Mg/ML 100 ML Bottle IV SCH (22:50)
[2024-08-26 06:26] LABS: BASOPHILS ABSOLUTE AUTO 0.0 x10-3/uL (0.0-0.1); BASOPHILS PERCENT AUTO 0.4 % (0.2-1.5); EOSINOPHILS ABSOLUTE AUTO 0.0 x10-3/uL (0.0-0.8); EOSINOPHILS PERCENT AUTO 0.3 % (0.6-8.1); LYMPHOCYTES ABSOLUTE AUTO 1.1 x10-3/uL (1.0-4.4); LYMPHOCYTES PERCENT AUTO 11.3 % (18.4-52.1); MEAN PLATELET VOLUME 8.9 fL (7.1-12.4); MONOCYTES ABSOLUTE AUTO 1.0 x10-3/uL (0.3-1.0); MONOCYTES PERCENT AUTO 9.8 % (4.4-15.7); NEUTROPHILS ABSOLUTE AUTO 7.7 x10-3/uL (1.5-6.3); NEUTROPHILS PERCENT AUTO 78.2 % (30.8-76.2); PLATELET COUNT,PLT 199 x10(3)uL (151-488); RED CELL DISTRIBUTION WIDTH 17.8 % (12.3-16.5); WHITE BLOOD CELL COUNT,WBC 9.8 x10-3/uL (3.0-10.3)
[2024-08-26 06:34] LABS: RED BLOOD CELL COUNT 3.48 x10(6)uL (3.60-5.20)
[2024-08-26 06:37] LABS: CARBON DIOXIDE,CO2 26 mmol/L (21-32); CHLORIDE,CL 105 mmol/L (100-110); CREATININE 0.7 mg/dL (0.55-1.02); EST CRCL DRUG DOSING (CG) 93.09 mL/min; ESTIMATED GFR 116 mL/min (>60); GLUCOSE RANDOM 105 mg/dL (80-116); POTASSIUM,K 3.4 mmol/L (3.5-5.3); SODIUM,NA 139 mmol/L (135-145); VANCOMYCIN TROUGH 14.5 ug/mL (<0.8)
[2024-08-26 06:45] LABS: BLOOD UREA NITROGEN,BUN < 5 mg/dL (7-18)
[2024-08-26] MEDS: Iopamidol 755 Mg/ML 100 ML Bottle IV SCH (08:02)
[2024-08-26] MEDS ORDERED: Iopamidol 755 Mg/ML 100 ML Bottle IV SCH (08:19)
[2024-08-26] MEDS: VANCOmycin 1 GM/200 ML 1 GM in Premix Bag 1 BAG IV SCH (11:24)
[2024-08-26] MEDS: Potassium Chloride 20 MEQ Tab.ER PO ONE (12:12)
[2024-08-27 06:03] LABS: BASOPHILS ABSOLUTE AUTO 0.0 x10-3/uL (0.0-0.1); BASOPHILS PERCENT AUTO 0.2 % (0.2-1.5); EOSINOPHILS ABSOLUTE AUTO 0.1 x10-3/uL (0.0-0.8); EOSINOPHILS PERCENT AUTO 1.2 % (0.6-8.1); LYMPHOCYTES ABSOLUTE AUTO 1.2 x10-3/uL (1.0-4.4); LYMPHOCYTES PERCENT AUTO 18.6 % (18.4-52.1); MEAN PLATELET VOLUME 9.0 fL (7.1-12.4); MONOCYTES ABSOLUTE AUTO 0.6 x10-3/uL (0.3-1.0); MONOCYTES PERCENT AUTO 9.9 % (4.4-15.7); NEUTROPHILS ABSOLUTE AUTO 4.4 x10-3/uL (1.5-6.3); NEUTROPHILS PERCENT AUTO 70.1 % (30.8-76.2); PLATELET COUNT,PLT 213 x10(3)uL (151-488); RED CELL DISTRIBUTION WIDTH 17.5 % (12.3-16.5); WHITE BLOOD CELL COUNT,WBC 6.3 x10-3/uL (3.0-10.3)
[2024-08-27 06:19] LABS: RED BLOOD CELL COUNT 3.24 x10(6)uL (3.60-5.20)
[2024-08-27 06:23] LABS: CARBON DIOXIDE,CO2 27 mmol/L (21-32); CHLORIDE,CL 106 mmol/L (100-110); CREATININE 0.6 mg/dL (0.55-1.02); EST CRCL DRUG DOSING (CG) 108.61 mL/min; ESTIMATED GFR 120 mL/min (>60); GLUCOSE RANDOM 98 mg/dL (80-116); POTASSIUM,K 3.4 mmol/L (3.5-5.3); SODIUM,NA 142 mmol/L (135-145)
[2024-08-27 06:25] LABS: BLOOD UREA NITROGEN,BUN < 5 mg/dL (7-18)
[2024-08-27] MEDS: Potassium Chloride 20 MEQ Tab.ER PO ONE (10:59)
[2024-08-28 07:06] LABS: BLOOD UREA NITROGEN,BUN 5 mg/dL (7-18); CARBON DIOXIDE,CO2 28 mmol/L (21-32); CHLORIDE,CL 105 mmol/L (100-110); CREATININE 0.8 mg/dL (0.55-1.02); EST CRCL DRUG DOSING (CG) 81.46 mL/min; ESTIMATED GFR 98 mL/min (>60); GLUCOSE RANDOM 99 mg/dL (80-116); POTASSIUM,K 3.6 mmol/L (3.5-5.3); SODIUM,NA 140 mmol/L (135-145)
[2024-08-28 07:17] LABS: BASOPHILS ABSOLUTE AUTO 0.0 x10-3/uL (0.0-0.1); BASOPHILS PERCENT AUTO 0.4 % (0.2-1.5); EOSINOPHILS ABSOLUTE AUTO 0.1 x10-3/uL (0.0-0.8); EOSINOPHILS PERCENT AUTO 1.5 % (0.6-8.1); LYMPHOCYTES ABSOLUTE AUTO 1.7 x10-3/uL (1.0-4.4); LYMPHOCYTES PERCENT AUTO 23.5 % (18.4-52.1); MEAN PLATELET VOLUME 9.5 fL (7.1-12.4); MONOCYTES ABSOLUTE AUTO 0.5 x10-3/uL (0.3-1.0); MONOCYTES PERCENT AUTO 7.4 % (4.4-15.7); NEUTROPHILS ABSOLUTE AUTO 4.8 x10-3/uL (1.5-6.3); NEUTROPHILS PERCENT AUTO 67.2 % (30.8-76.2); PLATELET COUNT,PLT 299 x10(3)uL (151-488); RED CELL DISTRIBUTION WIDTH 17.9 % (12.3-16.5); WHITE BLOOD CELL COUNT,WBC 7.1 x10-3/uL (3.0-10.3)
[2024-08-28 07:25] VITALS: BP 128/90; PULSE 65
[2024-08-28 07:32] LABS: RED BLOOD CELL COUNT 3.72 x10(6)uL (3.60-5.20)
== END 2024-08-28 10:25 | disposition home or self-care (01) | DRG 690 ==
LOC: FB.ED 10:38 → FB.MS 13:22
PROVIDERS: ADMIT Internal Medicine; ATTEND Internal Medicine
DX: N10 Acute pyelonephritis (principal); E87.20 Acidosis, unspecified; N17.9 Acute kidney failure, unspecified; E86.0 Dehydration; E87.6 Hypokalemia; N20.0 Calculus of kidney; R51.9 Headache, unspecified; D64.9 Anemia, unspecified; Z90.49 Acquired absence of other specified parts of digestive tract; Z72.0 Tobacco use; Z79.899 Other long term (current) drug therapy; Z86.16 Personal history of COVID-19
CPT/HCPCS: 36415; 70450; 71045; 71046; 74176; 74177; 80048; 80053; 80202; 80307; 81001; 81025; 82550; 83605; 83690; 83735; 85025; 86140; 87040; 87086; 87088; 87186; 87426-QW; 93005; 93010; 96361; 96374; 96375; 99223; 99232; 99238; 99285; 99285-25; A9270-GY; J0696; J1650; J1885; J2270; J2405; J2543; J3370; J3372; J7030; J7050; Q9967